=== PATIENT | male | born 1955 | race Caucasian/White ===

== ENCOUNTER 2019-07-07 06:47 | Inpatient (IN) | payer OTHER ==
[2019-07-07] VITALS (9 sets, daily range): BP systolic 90–126; BP diastolic 54–66
[~2019-07-07] VITALS: Ht 190.5 cm; Wt 157.4 kg
[2019-07-07 07:40] LABS: HEMATOCRIT 53.3 % (42.0-52.0); HEMOGLOBIN 15.8 g/dl (14.0-18.0); MEAN CORPUSCULAR HGB 27.9 pg (27.0-31.0); MEAN CORPUSCULAR HGB CONC 29.6 g/dl (33.0-37.0); MEAN PLATELET VOLUME 9.9 fl (9.6-12.3); NUCLEATED RED BLOOD CELL 0.6 10*3/uL (0.0-0.0); NUCLEATED RED BLOOD CELL 3.1 % (0.0-0.0); PLATELET COUNT AUTOMATED 321 10*3/uL (130-400); RED BLOOD COUNT 5.67 10*6/uL (4.50-5.90); RED CELL DISTRI WIDTH 15.3 % (0-14.5); WHITE BLOOD COUNT 17.6 10*3/uL (4.8-10.8)
[2019-07-07 07:49] LABS: ACT PARTIAL THROMBO TIME 26.4 SECONDS (20.0-32.1); INTERNATIONAL NORM RATIO 1.2 (2.0-3.5)
[2019-07-07 07:56] LABS: ALBUMIN 3.2 gm/dl (3.1-4.5); ALKALINE PHOSPHATASE 61 U/L (45-117); BUN 41 mg/dl (7-24); CHLORIDE 93 mmol/L (98-107); CREATININE 1.22 mg/dL (0.70-1.30); POTASSIUM 3.7 mmol/L (3.5-5.1); SGOT/AST 107 IU/L (3-35); SGPT/ALT 171 U/L (12-78); SODIUM 135 mmol/L (136-145); TOTAL PROTEIN 7.5 gm/dL (6.4-8.2)
[2019-07-07 07:57] LABS: TROPONIN I 0.042 ng/ml (<0.045)
[2019-07-07 08:00] LABS: ATYPICAL LYMPHS 1 % (0-0); TOTAL CELLS COUNTED 100 #CELLS
[2019-07-07 08:01] LABS: ABG BASE EXCESS 10.1 mmol/L (-2.0-2.0); ARTERIAL BLOOD GAS PH 7.267 (7.35-7.45)
[2019-07-07 08:01] LABS: PLATELET SUFFICIENCY NORMAL (NORMAL); POLYCHROMASIA SLIGHT; TARGET CELLS FEW
--- NOTE | 2019-07-07 08:11 | NUR ---
Critical Value reported from LAB PCO2 96. Dr. Lacey notifed. No new orders received.
--- NOTE | 2019-07-07 09:53 | NUR ---
PT PLACED ON VENTILATOR, GIVEN 20MG ETOMIDATE AT 0932 AND SUCCINYLCHOLINE 120MG AT 0933. ET TUBE 25 @ LIP. PT PLCED ON PROPOFOL. VENT SETTINGS 600TV, RATE 14, PEEP 5 AND 100% O2.
--- NOTE | 2019-07-07 10:27 | NUR ---
ART LINE INITIATED BY SOUND ENGINEER AUDIO CONTROL.
--- NOTE | 2019-07-07 11:17 | NUR ---
KETAMINE STARTED AT 30ML/HR.
--- NOTE | 2019-07-07 11:40 | NUR ---
KETAMINE DISCONTINUED.
[2019-07-07 12:51] LABS: ABG BASE EXCESS 8.8 mmol/L (-2.0-2.0); ARTERIAL BLOOD GAS PH 7.34 (7.35-7.45)
[2019-07-07 12:53] LABS: BILIRUBIN 2+ (NEGATIVE); BLOOD NEGATIVE (NEGATIVE); CLARITY SL CLOUDY (CLEAR); COLOR YELLOW (YELLOW); GLUCOSE NEGATIVE (NEGATIVE); KETONE NEGATIVE (NEGATIVE); LEUKO ESTERASE NEGATIVE (NEGATIVE); NITRITE NEGATIVE (NEGATIVE); SPECIFIC GRAVITY 1.025 (1.005-1.030); UROBILINOGEN >= 8.0 E.U./dl (0.2-1.0)
[2019-07-07 13:07] LABS: EPITHELIAL CELLS 0-2; HYALINE CAST 15-20
[2019-07-07 13:08] LABS: FINE GRANULAR CAST 15-20
[2019-07-07] MEDS ORDERED: DALIRESP500 MC1 PO (14:14)
[2019-07-07] MEDS ORDERED: NORVASC10 MG PO (14:15)
[2019-07-07] MEDS ORDERED: Synthroid,Levo50 MCG PO (14:16)
[2019-07-07] MEDS ORDERED: CARDURA2 M1 PO (14:17)
[2019-07-07] MEDS ORDERED: MULTIVITAMINS1 EAC6 PO (14:18)
[2019-07-07] MEDS ORDERED: LOPID600 M1 PO (14:19)
[2019-07-07] MEDS ORDERED: LASIX20 MG PO (14:19)
[2019-07-07] MEDS ORDERED: COZAAR50 M1 PO (14:20)
[2019-07-07] MEDS ORDERED: KLOR-CON 1010 ME1 PO (14:21)
[2019-07-07] MEDS ORDERED: Motrin,Rufen800 MG PO (14:23)
--- NOTE | 2019-07-07 14:23 | NUR ---
MED LIST UPDATED WITH PILL BOTTLES BROUGHT IN BY DAUGHTER - DR POZO AWARE. PILLS GIVEN BACK TO DAUGHTER TO TAKE HOME
--- NOTE | 2019-07-07 14:40 | NUR ---
Patient age 64, admitted to ICCU, under the services of EUN Mcnally DO with a diagnosis of ACUTE RESPIRATORY FAILURE. Chief complaint is SOB. Patient arrived via bed from ER. Monitor applied. Initial assessment completed. Vital signs taken and recorded. EUN MCNALLY DO notified of admission to the unit. Orders received. See assessment for past medical history, medications and allergies. Patient and/or family oriented to unit. [facility] ICCU visitation policy reviewed. Clothing/patient valuable form completed. NG tube placed, grady placed, specimens collected per orders. Patient is mechanically ventilated. Arterial line present. CALLIE RYAN
--- NOTE | 2019-07-07 14:44 | NUR ---
MESSAGE LEFT WITH [facility] CARDIOLOGY OFFICE TO MAKE THEM AWARE OF NEW CONSULT ORDER.
--- NOTE | 2019-07-07 14:44 | NUR ---
DR ZAMUDIO NOTIFIED OF NEW CONSULT ORDER.
[2019-07-07 16:31] LABS: ABG BASE EXCESS 8.2 mmol/L (-2.0-2.0); ARTERIAL BLOOD GAS PH 7.349 (7.35-7.45)
[2019-07-08] VITALS (14 sets, daily range): BP systolic 99–112; BP diastolic 51–60
[2019-07-08 06:10] LABS: BASO % 0.2 % (0.0-1.0); EOS % 0.3 % (1.0-4.0); HEMATOCRIT 50.8 % (42.0-52.0); HEMOGLOBIN 15.1 g/dl (14.0-18.0); LYMPH # 0.7 10*3/uL (1.3-4.4); LYMPH % 4.9 % (27.0-41.0); MEAN CORPUSCULAR HGB 27.4 pg (27.0-31.0); MEAN CORPUSCULAR HGB CONC 29.7 g/dl (33.0-37.0); MEAN PLATELET VOLUME 10.2 fl (9.6-12.3); MONO # 1.2 10*3/uL (0.1-1.0); MONO % 8.5 % (3.0-9.0); NEUT # 12.3 10*3/uL (2.3-7.9); NEUT % 84.6 % (47.0-73.0); NUCLEATED RED BLOOD CELL 0.2 10*3/uL (0.0-0.0); PLATELET COUNT AUTOMATED 285 10*3/uL (130-400); RED BLOOD COUNT 5.52 10*6/uL (4.50-5.90); WHITE BLOOD COUNT 14.5 10*3/uL (4.8-10.8)
[2019-07-08 06:11] LABS: ALBUMIN 2.8 gm/dl (3.1-4.5); BUN 37 mg/dl (7-24); CHLORIDE 94 mmol/L (98-107); CHOLESTEROL 113 mg/dL (<200); CREATININE 1.26 mg/dL (0.70-1.30); HDL CHOLESTEROL 16 mg/dl (40-60); LDL CHOLESTEROL 59 mg/dL (9-159); PHOSPHOROUS 4.3 mg/dL (2.5-4.9); POTASSIUM 3.8 mmol/L (3.5-5.1); SGOT/AST 60 IU/L (3-35); SGPT/ALT 127 U/L (12-78); SODIUM 138 mmol/L (136-145); TOTAL PROTEIN 6.9 gm/dL (6.4-8.2); TRIGLYCERIDES 190 mg/dl (<150); VLDL CHOLESTEROL 38 mg/dL (6-40)
[2019-07-08 06:17] LABS: ALKALINE PHOSPHATASE 52 U/L (45-117); FREE T4 0.99 ng/dl (0.76-1.46)
[2019-07-08 07:44] LABS: VITAMIN D, 25-HYDROXY 12.7 ng/mL (30-100)
[2019-07-08 07:49] LABS: ABG BASE EXCESS 9.2 mmol/L (-2.0-2.0); ARTERIAL BLOOD GAS PH 7.375 (7.35-7.45)
--- NOTE | 2019-07-08 09:00 | NUR ---
case management did not visit with patient, patient is on the vent at this time, discharge plan undecided at this time
[2019-07-09] VITALS (10 sets, daily range): BP systolic 95–158; BP diastolic 50–81
[2019-07-09 06:07] LABS: ALBUMIN 2.9 gm/dl (3.1-4.5); ALKALINE PHOSPHATASE 46 U/L (45-117); BUN 39 mg/dl (7-24); CHLORIDE 94 mmol/L (98-107); CREATININE 1.17 mg/dL (0.70-1.30); POTASSIUM 3.8 mmol/L (3.5-5.1); SGOT/AST 29 IU/L (3-35); SGPT/ALT 96 U/L (12-78); SODIUM 138 mmol/L (136-145); TOTAL PROTEIN 6.9 gm/dL (6.4-8.2)
[2019-07-09 06:34] LABS: BASO % 0.1 % (0.0-1.0); HEMATOCRIT 51.7 % (42.0-52.0); HEMOGLOBIN 15.6 g/dl (14.0-18.0); LYMPH # 0.4 10*3/uL (1.3-4.4); LYMPH % 3.7 % (27.0-41.0); MEAN CELL VOLUME 90.9 fl (80.0-94.0); MEAN CORPUSCULAR HGB 27.4 pg (27.0-31.0); MEAN CORPUSCULAR HGB CONC 30.2 g/dl (33.0-37.0); MEAN PLATELET VOLUME 10.7 fl (9.6-12.3); MONO # 0.9 10*3/uL (0.1-1.0); MONO % 8.6 % (3.0-9.0); NEUT % 86.7 % (47.0-73.0); NUCLEATED RED BLOOD CELL 0.1 10*3/uL (0.0-0.0); NUCLEATED RED BLOOD CELL 0.9 % (0.0-0.0); PLATELET COUNT AUTOMATED 253 10*3/uL (130-400); RED BLOOD COUNT 5.69 10*6/uL (4.50-5.90); WHITE BLOOD COUNT 10.4 10*3/uL (4.8-10.8)
--- NOTE | 2019-07-09 07:30 | NUR ---
INTUBATED AND SEDATED, SEDATION VACATION-PT AWAKENS FULLY AND MOTIONS TO WRITE NOTES, DIPROVAN RESUMED, OGT PLACEMENT CONFIRMED, ART LINE ZERO CALIBRATED PER POLICY, RASHEED FOPA VERY SMALL AMOUNT ELLIS URINE WITH SEDIMENT, RIJ CENTRAL LINE SECURE
[2019-07-09 07:58] LABS: ABG BASE EXCESS 12.1 mmol/L (-2.0-2.0); ARTERIAL BLOOD GAS PH 7.413 (7.35-7.45)
[2019-07-09 11:10] LABS: HEPATITIS B SURFACE AG Negative (Negative); HEPATITIS C VIRUS ANTIBODY 0.3 s/co (0.0-0.9)
--- NOTE | 2019-07-09 14:28 | NUR ---
pt fully awake, following directions, diprovan has been off, placed on cpap
[2019-07-09 17:00] LABS: ABG BASE EXCESS 13.8 mmol/L (-2.0-2.0); ARTERIAL BLOOD GAS PH 7.45 (7.35-7.45)
--- NOTE | 2019-07-09 17:46 | NUR ---
RASHEED CHANGED, DUE TO LEAKING AND SMALL URINE OUTPUT IN RASHEED FROM 7-3, IMMEDIATELY RETURN OF 1000 CC FOREIGN URINE
--- NOTE | 2019-07-09 17:50 | NUR ---
restraints removed at pts request
--- NOTE | 2019-07-09 20:22 | NUR ---
PATIENT SLIGHTLY AGITATED WITH ENDO TUBE, ATIVAN GIVEN TO HELP. WILL MONTIOR AND REASSESS.
--- NOTE | 2019-07-09 21:00 | NUR ---
PATIENT MORE RELAXED WITH THE ATIVAN, REQUESTED THE USE OF MOUTH SWABS. WAS GIVEN. ATIVAN EFFECTIVE. WILL CONTINUE TO MONITOR.
--- NOTE | 2019-07-09 23:14 | NUR ---
RESP IN TO SUCTION PATIENT, WHILE COUGHING OG CAME OUT. NOT REPLACED AT THIS TIME. DR. SHANE NOTIFIED.
[2019-07-10] VITALS: BP 109/58
[2019-07-10 04:00] VITALS: BP 115/54
[2019-07-10 05:32] LABS: ALBUMIN 2.9 gm/dl (3.1-4.5); BUN 37 mg/dl (7-24); CHLORIDE 95 mmol/L (98-107); POTASSIUM 3.7 mmol/L (3.5-5.1); SODIUM 141 mmol/L (136-145)
[2019-07-10 05:36] LABS: ALKALINE PHOSPHATASE 45 U/L (45-117); CREATININE 1.13 mg/dL (0.70-1.30); SGOT/AST 23 IU/L (3-35); SGPT/ALT 71 U/L (12-78); TOTAL PROTEIN 6.9 gm/dL (6.4-8.2)
[2019-07-10 06:14] LABS: HEMATOCRIT 52.6 % (42.0-52.0); HEMOGLOBIN 15.8 g/dl (14.0-18.0); MEAN CELL VOLUME 91.3 fl (80.0-94.0); MEAN CORPUSCULAR HGB 27.4 pg (27.0-31.0); MEAN PLATELET VOLUME 10.7 fl (9.6-12.3); NUCLEATED RED BLOOD CELL 0.1 10*3/uL (0.0-0.0); NUCLEATED RED BLOOD CELL 0.3 % (0.0-0.0); PLATELET COUNT AUTOMATED 227 10*3/uL (130-400); RED BLOOD COUNT 5.76 10*6/uL (4.50-5.90); RED CELL DISTRI WIDTH 14.9 % (0-14.5); WHITE BLOOD COUNT 16.1 10*3/uL (4.8-10.8)
[2019-07-10 07:36] LABS: POLYCHROMASIA SLIGHT; TOTAL CELLS COUNTED 100 #CELLS
[2019-07-10 07:37] LABS: PLATELET SUFFICIENCY NORMAL (NORMAL)
[2019-07-10 07:40] LABS: ABG BASE EXCESS 16.7 mmol/L (-2.0-2.0); ARTERIAL BLOOD GAS PH 7.466 (7.35-7.45)
[2019-07-10 08:00] VITALS: BP 109/60
--- NOTE | 2019-07-10 08:15 | NUR ---
RESTING NICELY ON VENTILATOR - RESTRAINTS NOT IN USE..AWAITING DR ZAMUDIO TO REVIEW ABG RESULTS..HE WAS CALLED BUT SAID HE WAS ON HIS WAY.
--- NOTE | 2019-07-10 09:00 | NUR ---
case mangement/master planner will contact patient's family regading discharge plans
--- NOTE | 2019-07-10 10:40 | NUR ---
patient extubated to bipap 16/10 50% o2 hung well.
[2019-07-10 12:00] VITALS: BP 133/71
--- NOTE | 2019-07-10 14:27 | NUR ---
PATIENT EATING ON NC5L... SATS 92%
[2019-07-10 16:00] VITALS: BP 121/57
--- NOTE | 2019-07-10 18:45 | NUR ---
2 UNSUCCESSFUL ATTEMPTS AT STARTING A SECOND IV SITE. PT TOLERATED WELL.
[2019-07-10 20:00] VITALS: BP 132/65
--- NOTE | 2019-07-10 20:00 | NUR ---
PATIENT SITTING UP IN BED, FEELING BETTER. STATES HE WANT TO GET OUT OF BED, BUT NOT UNTIL THE MORNING. PITTING EDEMA TO LOWER EXTS. PAIN TO RT LEG. BREATHING IS NON-LABORED, DENIES COUGH. PATIENT LEFT WITH CALL LIGHT IN REACH.
--- NOTE | 2019-07-10 20:18 | NUR ---
24 HR chart check completed.
--- NOTE | 2019-07-10 23:31 | NUR ---
PATIENT REQUESTED SOMETHING TO HELP HIM SLEEP. RESTORIL WAS GIVEN. WILL MONITOR AND REASSESS.
[2019-07-11] VITALS: BP 123/60
--- NOTE | 2019-07-11 00:30 | NUR ---
PATIENT RESTING ON BIPAP, NO SIGNS OF DISTRESS. RESTORIL EFFECTIVE.
[2019-07-11 04:00] VITALS: BP 125/64
--- NOTE | 2019-07-11 05:18 | NUR ---
PATIENT REQUESTED TO BE OFF BIPAP, TOLERATED WELL THROUGHTOUT THE NIGHT, PLACED ON 5L NC. POX 94%
[2019-07-11 05:27] LABS: HEMATOCRIT 51.5 % (42.0-52.0); HEMOGLOBIN 15.5 g/dl (14.0-18.0); MEAN CELL VOLUME 90.5 fl (80.0-94.0); MEAN CORPUSCULAR HGB 27.2 pg (27.0-31.0); MEAN CORPUSCULAR HGB CONC 30.1 g/dl (33.0-37.0); MEAN PLATELET VOLUME 10.6 fl (9.6-12.3); PLATELET COUNT AUTOMATED 206 10*3/uL (130-400); RED BLOOD COUNT 5.69 10*6/uL (4.50-5.90); RED CELL DISTRI WIDTH 14.6 % (0-14.5)
[2019-07-11 05:46] LABS: ALBUMIN 3.1 gm/dl (3.1-4.5); ALKALINE PHOSPHATASE 43 U/L (45-117); BUN 29 mg/dl (7-24); CHLORIDE 91 mmol/L (98-107); CREATININE 1.07 mg/dL (0.70-1.30); PHOSPHOROUS 3.4 mg/dL (2.5-4.9); POTASSIUM 3.7 mmol/L (3.5-5.1); SGOT/AST 22 IU/L (3-35); SGPT/ALT 56 U/L (12-78); SODIUM 136 mmol/L (136-145); TOTAL PROTEIN 6.9 gm/dL (6.4-8.2)
[2019-07-11 07:07] LABS: PLATELET SUFFICIENCY NORMAL (NORMAL); STOMATOCYTE FEW; TARGET CELLS FEW; TOTAL CELLS COUNTED 100 #CELLS
[2019-07-11 07:10] LABS: POLYCHROMASIA SLIGHT
[2019-07-11 08:00] VITALS: BP 118/63
--- NOTE | 2019-07-11 08:00 | NUR ---
PT RESTING QUIETLY AND COOPERATIVE AT THIS TIME. EASY RESPIRATIONS. RASHEED CATHETER IN PLACE DRAINING CLEAN YELLOW URINE. ART LINE IN PLACE PATENT. IV LINES PATENT WITH NO SIGNS OF ANY COMPLICATIONS. PT REPORTS SOME TENDERNESS TO RIGHT FALLON AND CALF. EDEMA NOTED BILATERALLY.
--- NOTE | 2019-07-11 08:21 | NUR ---
24 HR chart check completed.
--- NOTE | 2019-07-11 08:40 | NUR ---
PT UP TO CHAIR TO EAT BREAKFAST WITH ONE ASSIST RN AND WALKER. TOLERATED WELL
--- NOTE | 2019-07-11 09:10 | NUR ---
PT TRANSPORTED TO XRAY VIA WHEELCHAIR. RN WENT WITH PATIENT TO RADIOLOGY. OXYGEN SUPPLEMENTATION INCREASED TO 6L NC OXYGEN SATURATIONS REMAIN LOW 90S
--- NOTE | 2019-07-11 09:29 | NUR ---
PT BACK TO ROOM. IN BEDSIDE CHAIR EATING BREAKFAST. NO RESPIRATORY DISTRESS AT THIS TIME. PT REPORTS SOME ONGIONG PAIN TO THE RIGHT CALF AREA. MD GLOVER
--- NOTE | 2019-07-11 11:20 | NUR ---
RASHEED CATHETER DISCONTINUED PER MD ORDERS. PT TOLERATED WELL. NO BLEEDING OR DIFFICULTY REMOVING. CATHETER TIP INTACT.
--- NOTE | 2019-07-11 11:30 | NUR ---
ART LINE REMOVED FROM LEFT ANTECUBITAL. CATHETER TIP REMOVED INTACT WITH ACUTE BLEEDING CONTROLLED. MANUAL PRESSURE APPLIED TO CONTROL BLEEDING UPON REMOVAL PRESSURE DRESSING APPLIED TO LEFT ANTECUBITAL. PT TOLERATED WELL.
[2019-07-11 12:00] VITALS: BP 131/62
--- NOTE | 2019-07-11 13:45 | NUR ---
PT REMAINS IN BEDSIDE CHAIR. RESTING QUIETLY. NO RESPIRATORY DISTRESS.
[2019-07-11 16:00] VITALS: BP 121/66
--- NOTE | 2019-07-11 17:25 | NUR ---
PATIENT REFUSES KRYSTA - "TOO TIGHT" REF SCD (FALL RISK HE GETS UP TO VOID) PT ALSO C/O TENDERNESS TO RT FALLON (UNABLE TO DO ULTRASOUND UNTIL SATURDAY) LOVENOX TAKEN..
--- NOTE | 2019-07-11 19:30 | NUR ---
DR MEZA HERE AND MADE AWARE OF CHANGES IN EKG - DENIES CHEST PAIN BUT PATIENT IS SOB WITH EXERTION AND FEELS FEVERED. PATIENT IS CLAMMY. STAT LABS & EKG WERE ORDERED. DR PINTO CALLED AND CASE REVIEWED --- EKG REVIEWED AND ORDERS FOR HEPARIN DRIP RECEIVED...DR MEZA HERE
[2019-07-11 20:00] VITALS: BP 133/73
[2019-07-11 20:04] LABS: ACT PARTIAL THROMBO TIME 26.6 SECONDS (20.0-32.1); INTERNATIONAL NORM RATIO 1.1 (2.0-3.5)
--- NOTE | 2019-07-11 20:30 | NUR ---
HEPARIN GTT INITIATED AT 12 UNITS PER PROTOCOL. INITIAL PTT 26.6. CALL LIGHT WITHIN REACH.
[2019-07-12] VITALS (7 sets, daily range): BP systolic 105–130; BP diastolic 58–80
--- NOTE | 2019-07-12 03:00 | NUR ---
HEPARIN GTT INCREASED TO 14 UNIT PER PROTOCOL.
--- NOTE | 2019-07-12 08:30 | NUR ---
UP IN CHAIR AFTER BATH DONE MOSTLY BY STAFF
--- NOTE | 2019-07-12 09:24 | NUR ---
DR GUTIERRES ROUNDED - PATIENT SEEN & ORDERS RECEIVED.
[2019-07-12 09:28] LABS: BASO % 0.2 % (0.0-1.0); EOS % 0.2 % (1.0-4.0); HEMATOCRIT 50.9 % (42.0-52.0); HEMOGLOBIN 15.8 g/dl (14.0-18.0); LYMPH # 0.5 10*3/uL (1.3-4.4); LYMPH % 3.6 % (27.0-41.0); MEAN CELL VOLUME 89.8 fl (80.0-94.0); MEAN CORPUSCULAR HGB 27.9 pg (27.0-31.0); MEAN PLATELET VOLUME 10.7 fl (9.6-12.3); MONO # 1.1 10*3/uL (0.1-1.0); MONO % 8.6 % (3.0-9.0); NEUT # 10.9 10*3/uL (2.3-7.9); NEUT % 87.1 % (47.0-73.0); PLATELET COUNT AUTOMATED 191 10*3/uL (130-400); RED BLOOD COUNT 5.67 10*6/uL (4.50-5.90); RED CELL DISTRI WIDTH 14.4 % (0-14.5); WHITE BLOOD COUNT 12.5 10*3/uL (4.8-10.8)
[2019-07-12 09:42] LABS: ALBUMIN 3.2 gm/dl (3.1-4.5); ALKALINE PHOSPHATASE 42 U/L (45-117); BUN 25 mg/dl (7-24); CHLORIDE 90 mmol/L (98-107); CREATININE 1.24 mg/dL (0.70-1.30); POTASSIUM 3.9 mmol/L (3.5-5.1); SGOT/AST 21 IU/L (3-35); SGPT/ALT 53 U/L (12-78); SODIUM 132 mmol/L (136-145); TOTAL PROTEIN 7.1 gm/dL (6.4-8.2)
--- NOTE | 2019-07-12 10:40 | NUR ---
HEPARIN DRIP INCREASED PER POLICY
--- NOTE | 2019-07-12 11:35 | NUR ---
GLUCOSE 516 IN LEFT HAND - RECHECKED IN RT HAND & RESULT 496.. COVERED WITH INSULIN PER SLIDING SCALE... PATIENT SITTING UP IN CHAIR WITH FAMILY PRESENT
--- NOTE | 2019-07-12 12:45 | NUR ---
DR ZAMUDIO HERE AND CASE REVIEWED..ORDERS RECEIVED
--- NOTE | 2019-07-12 20:56 | NUR ---
PATIENT REQUESTED A SLEEPING PILL. RESTORIL GIVEN. WILL MONITOR AND REASSESS.
--- NOTE | 2019-07-12 23:20 | NUR ---
PLACED PATIENT ON BIPAP FOR THE NIGHT
[2019-07-13] VITALS: BP 107/66
--- NOTE | 2019-07-13 00:24 | NUR ---
PATIENT RESTING ON BIPAP, NO SIGNS OF DISTRESS. RESTORIL EFFECTIVE.
--- NOTE | 2019-07-13 02:02 | NUR ---
PATIENT REQUESTED TO BE TAKEN OFF BIPAP. PLACED ON 5L NC.
[2019-07-13 04:00] VITALS: BP 100/63
--- NOTE | 2019-07-13 04:19 | NUR ---
24 HR chart check completed.
[2019-07-13 05:29] LABS: HEMATOCRIT 51.1 % (42.0-52.0); HEMOGLOBIN 15.5 g/dl (14.0-18.0); MEAN CELL VOLUME 89.6 fl (80.0-94.0); MEAN CORPUSCULAR HGB 27.2 pg (27.0-31.0); MEAN CORPUSCULAR HGB CONC 30.3 g/dl (33.0-37.0); MEAN PLATELET VOLUME 11.4 fl (9.6-12.3); PLATELET COUNT AUTOMATED 192 10*3/uL (130-400); RED CELL DISTRI WIDTH 14.3 % (0-14.5); WHITE BLOOD COUNT 12.8 10*3/uL (4.8-10.8)
[2019-07-13 05:49] LABS: BUN 23 mg/dl (7-24); CHLORIDE 92 mmol/L (98-107); CREATININE 0.87 mg/dL (0.70-1.30); POTASSIUM 3.1 mmol/L (3.5-5.1); SODIUM 137 mmol/L (136-145)
[2019-07-13 06:24] LABS: BASOPHILS 1 % (0-1); TOTAL CELLS COUNTED 100 #CELLS
[2019-07-13 06:25] LABS: PLATELET SUFFICIENCY NORMAL (NORMAL)
[2019-07-13 08:00] VITALS: BP 109/64
--- NOTE | 2019-07-13 10:03 | NUR ---
INFORMED SIGNED CONSENT OBTAINED FOR LEXISCAN STRESS TEST WITH DR MAS. RESTING EKG RBBB HR 83 BP 122/64. PULSE OX 92% ON 4L. PT COMPLETED ONE MINUTE OF A LEXISCAN PROTOCOL WITH PT RECEIVING LEXISCAN 0.4MG IV OVER 10 SECONDS. NO ARRHYTHMIAS OR ST CHANGES NOTED. PT HAD NO SYMPTOMS WITH INJECTION. LAST RECOVERY HR OF 85 BP 114/68. PT IN STABLE CONDITION, AWAITING NUCLEAR IMAGES.
[2019-07-13 12:00] VITALS: BP 115/60
[2019-07-13 16:00] VITALS: BP 98/65
--- NOTE | 2019-07-13 16:10 | NUR ---
PATIENT TESTED FOR HOME OXYGEN USE. PATIENT HAS PREVIOUSLY HAD OXYGEN AT HOME AT 3LNC WITH PORTABLE OPTIONS. AT REST ON 3LNC HE WAS SITTING AT 88% SPO2, HEART RATE:77,RESPIRATORY RATE:18 BLOOD PRESSURE:115/60. DURING THE AMBULATION THE 3 LITERS WAS NOT ENOUGH. PATIENT TURNED TO 4L WITH SPO2 STILL AT 88%. 5LNC WAS ABLE TO GIVE US 90% WHILE STANDING STILL, BUT PATIENT HAD TO BE INCREASED TO 6LNC DURING AMBULATION. PATIENT RECOVERED QUICKLY ON 6LNC WHEN RETURNED TO CHAIR IN ROOM. DURING AMBULATION PATIENT WAS ABLE TO MAINTAIN 90/91% SPO2 ON THE 6 L NASAL CANNULA.
--- NOTE | 2019-07-13 18:10 | NUR ---
REMAINS UP IN RECLINER
[2019-07-13 20:00] VITALS: BP 107/59
--- NOTE | 2019-07-13 20:08 | NUR ---
1930 REMAINS SITTING UP IN RECLINER CHAIR AT BEDSIDE. ALERT AND PLEASANT. NO C/O'S PAIN OR DISCOMFORT VOICED. RIJ MLC INTACT. HEP LOCK INTACT LA. URINAL AT BEDSIDE. VOIDS QS. 02 INTACT VIA NC. NO DISTRESS NOTED. EDEMA CONT OF BILATERAL LOWER EXTREMITIES.
--- NOTE | 2019-07-13 22:15 | NUR ---
BACK IN BED. CALL LIGHT IN REACH. RESTING IN BED WATCHING TV.
[2019-07-14] VITALS: BP 125/75
--- NOTE | 2019-07-14 00:13 | NUR ---
REMAINS WITHOUT C/O'S. PULSE OX 96% ON 5L. RESPIRATIONS EASY AND UNLABORED.
--- NOTE | 2019-07-14 03:21 | NUR ---
RESTING IN BED WITH EYES CLOSED. APPEARS TO BE SLEEPING.
[2019-07-14 04:00] VITALS: BP 117/72
--- NOTE | 2019-07-14 06:08 | NUR ---
REMAINS SLEEPING WITHOUT DISTRESS. HOB ELEVATED. 02 INTACT. RIJ MLC INTACT. CONDITION GUARDED.
[2019-07-14 06:24] LABS: HEMATOCRIT 51.8 % (42.0-52.0); HEMOGLOBIN 15.9 g/dl (14.0-18.0); MEAN CELL VOLUME 89.6 fl (80.0-94.0); MEAN CORPUSCULAR HGB 27.5 pg (27.0-31.0); MEAN CORPUSCULAR HGB CONC 30.7 g/dl (33.0-37.0); MEAN PLATELET VOLUME 11.5 fl (9.6-12.3); PLATELET COUNT AUTOMATED 205 10*3/uL (130-400); RED BLOOD COUNT 5.78 10*6/uL (4.50-5.90); RED CELL DISTRI WIDTH 14.6 % (0-14.5); WHITE BLOOD COUNT 15.9 10*3/uL (4.8-10.8)
[2019-07-14 06:41] LABS: BUN 20 mg/dl (7-24); CHLORIDE 93 mmol/L (98-107); CREATININE 0.86 mg/dL (0.70-1.30); POTASSIUM 3.7 mmol/L (3.5-5.1); SODIUM 135 mmol/L (136-145)
[2019-07-14 07:13] LABS: ATYPICAL LYMPHS 2 % (0-0); PLATELET SUFFICIENCY NORMAL (NORMAL); TOTAL CELLS COUNTED 100 #CELLS
[2019-07-14 08:00] VITALS: BP 106/65
--- NOTE | 2019-07-14 08:49 | NUR ---
case management visits with patient, he states he lives at home alone, he uses he is independent in ambulation with a cane, he is independent in adls. he has home oxygen and portable tanks, he thinks the suppling company is [employer]. discussed with him a discharge plan including a short term longterm for rehab, patient declined this, also discussed VNA and educated him on the services they provide, he was receptive to this, case management will send referral to home health for when patient is medically stable for discharge
[2019-07-14] MEDS ORDERED: LASIX40 MG PO (10:13)
[2019-07-14] MEDS ORDERED: LOPRESSOR25 MG PO (10:13)
[2019-07-14] MEDS ORDERED: ATORVASTATIN CA40 M1 PO (10:13)
[2019-07-14] MEDS ORDERED: ASPIRIN ADULT L81 M2 PO (10:13)
[2019-07-14] MEDS ORDERED: PREDNISONE10 MG PO (10:13)
--- NOTE | 2019-07-14 10:40 | NUR ---
Discharge instructions reviewed with patient/family. Patient receptive and verbalizes understanding. Follow-up care arranged. Written instructions given to patient/family. CLARK HERRERA
--- NOTE | 2019-07-14 10:41 | NUR ---
case management notifed Marta at [facility] that patient is being discharged to home today
--- NOTE | 2019-07-14 10:52 | NUR ---
PT DISCHARGED TO HOME WITH DAUGHTER.
== END 2019-07-14 11:24 | disposition home health service (06) | DRG 720 ==
LOC: ED 06:47 → ICCU 08:52 → EDHOLD 08:52 → ICCU 11:47
PROVIDERS: Emergency Medicine; Internal Medicine; Internal Medicine Critical Care Medicine; ADMIT Family Medicine
PROC: 5A09357 Assistance with Respiratory Ventilation, Less than 24 Consecutive Hours, Continuous Positive Airway Pressure (ICD-10-PCS; principal; 2019-07-07)
PROC: 02HV33Z Insertion of Infusion Device into Superior Vena Cava, Percutaneous Approach (ICD-10-PCS; 2019-07-07)
PROC: B548ZZA Ultrasonography of Superior Vena Cava, Guidance (ICD-10-PCS; 2019-07-07)
PROC: 0BH17EZ Insertion of Endotracheal Airway into Trachea, Via Natural or Artificial Opening (ICD-10-PCS; 2019-07-07)
PROC: 5A1945Z Respiratory Ventilation, 24-96 Consecutive Hours (ICD-10-PCS; 2019-07-07)
PROC: 03HY32Z Insertion of Monitoring Device into Upper Artery, Percutaneous Approach (ICD-10-PCS; 2019-07-07)
PROC: 4A133B1 Monitoring of Arterial Pressure, Peripheral, Percutaneous Approach (ICD-10-PCS; 2019-07-07)
PROC: 4A133J1 Monitoring of Arterial Pulse, Peripheral, Percutaneous Approach (ICD-10-PCS; 2019-07-07)
PROC: 5A09357 Assistance with Respiratory Ventilation, Less than 24 Consecutive Hours, Continuous Positive Airway Pressure (ICD-10-PCS; 2019-07-09)
PROC: 5A09357 Assistance with Respiratory Ventilation, Less than 24 Consecutive Hours, Continuous Positive Airway Pressure (ICD-10-PCS; 2019-07-10)
PROC: 5A09357 Assistance with Respiratory Ventilation, Less than 24 Consecutive Hours, Continuous Positive Airway Pressure (ICD-10-PCS; 2019-07-11)
PROC: 5A09357 Assistance with Respiratory Ventilation, Less than 24 Consecutive Hours, Continuous Positive Airway Pressure (ICD-10-PCS; 2019-07-12)
PROC: 4A02XM4 Measurement of Cardiac Total Activity, External Approach (ICD-10-PCS; 2019-07-13)
PROC: 3E073KZ Introduction of Other Diagnostic Substance into Coronary Artery, Percutaneous Approach (ICD-10-PCS; 2019-07-13)
DX: A41.9 Sepsis, unspecified organism (principal); J96.21 Acute and chronic respiratory failure with hypoxia; I21.4 Non-ST elevation (NSTEMI) myocardial infarction; J96.02 Acute respiratory failure with hypercapnia; J18.9 Pneumonia, unspecified organism; I50.33 Acute on chronic diastolic (congestive) heart failure; J44.1 Chronic obstructive pulmonary disease with (acute) exacerbation; E87.4 Mixed disorder of acid-base balance; E87.1 Hypo-osmolality and hyponatremia; E83.41 Hypermagnesemia; I11.0 Hypertensive heart disease with heart failure; Z99.81 Dependence on supplemental oxygen; R65.20 Severe sepsis without septic shock; E78.5 Hyperlipidemia, unspecified; E66.01 Morbid (severe) obesity due to excess calories; E11.65 Type 2 diabetes mellitus with hyperglycemia; E03.9 Hypothyroidism, unspecified; F12.90 Cannabis use, unspecified, uncomplicated; I45.10 Unspecified right bundle-branch block; E87.6 Hypokalemia; I77.819 Aortic ectasia, unspecified site; T38.0X5A Adverse effect of glucocorticoids and synthetic analogues, initial encounter; Z86.73 Personal history of transient ischemic attack (TIA), and cerebral infarction without residual deficits; Z68.41 Body mass index [BMI] 40.0-44.9, adult; Z87.891 Personal history of nicotine dependence; Z83.3 Family history of diabetes mellitus; Z91.018 Allergy to other foods; Y92.89 Other specified places as the place of occurrence of the external cause

== ENCOUNTER 2020-04-26 15:29 | Inpatient (IN) | payer OTHER ==
[~2020-04-26] VITALS: Ht 198.1 cm; Wt 150.4 kg
[~2020-04-26 15:29] MED LIST: ASPIRIN ADULT L81 M2 PO; ATORVASTATIN CA40 M1 PO; CARDURA2 M1 PO; COZAAR50 M1 PO; DALIRESP500 MC1 PO; KLOR-CON 1010 ME1 PO; LASIX20 MG PO; LASIX40 MG PO; LOPID600 M1 PO; LOPRESSOR25 MG PO; MULTIVITAMINS1 EAC6 PO; Motrin,Rufen800 MG PO; NORVASC10 MG PO; PREDNISONE10 MG PO; Synthroid,Levo50 MCG PO
[2020-04-26 15:32] VITALS: BP 105/60
[2020-04-26 16:26] LABS: HEMATOCRIT 53.6 % (42.0-52.0); MEAN CELL VOLUME 88.6 fl (80.0-94.0); MEAN CORPUSCULAR HGB 26.1 pg (27.0-31.0); MEAN CORPUSCULAR HGB CONC 29.5 g/dl (33.0-37.0); MEAN PLATELET VOLUME 9.9 fl (9.6-12.3); NUCLEATED RED BLOOD CELL 0.2 10*3/uL (0.0-0.0); NUCLEATED RED BLOOD CELL 1.3 % (0.0-0.0); PLATELET COUNT AUTOMATED 246 10*3/uL (130-400); RED BLOOD COUNT 6.05 10*6/uL (4.50-5.90); RED CELL DISTRI WIDTH 15.9 % (0-14.5)
[2020-04-26 16:38] LABS: INTERNATIONAL NORM RATIO 1.2 (2.0-3.5)
[2020-04-26 16:43] LABS: BASOPHILS 1 % (0-1); PLATELET SUFFICIENCY NORMAL (NORMAL); TOTAL CELLS COUNTED 100 #CELLS
[2020-04-26 17:01] LABS: ALBUMIN 3.1 gm/dl (3.1-4.5); ALKALINE PHOSPHATASE 67 U/L (45-117); BUN 32 mg/dl (7-24); CHLORIDE 100 mmol/L (98-107); CREATININE 1.05 mg/dL (0.70-1.30); LIPASE 60 U/L (73-393); POTASSIUM 4.9 mmol/L (3.5-5.1); SGOT/AST 9 IU/L (3-35); SGPT/ALT 27 U/L (12-78); SODIUM 138 mmol/L (136-145); TOTAL PROTEIN 6.7 gm/dL (6.4-8.2)
[2020-04-26 17:10] LABS: TROPONIN I 0.064 ng/ml (<0.045)
--- NOTE | 2020-04-26 18:24 | NUR ---
THE IV THAT EMS PUT IN DID PULL OUT
[2020-04-26 19:00] VITALS: BP 106/64
--- NOTE | 2020-04-26 19:00 | NUR ---
A 64, admitted to 5E, under the services of YVROSE Salas DO with a diagnosis of NEW ONSET A FLUTTER, ELEVATED TROPONINS. Chief complaint is WEAKNESS, SOB. Patient arrived via ambulance from ER. Monitor applied. Initial assessment completed. Vital signs taken and recorded. YVROSE SALAS DO notified of admission to the unit. Orders received. See assessment for past medical history, medications and allergies. Patient and/or family oriented to unit. [facility] visitation policy reviewed. Clothing/patient valuable form completed. BRANDON NASCIMENTO
--- NOTE | 2020-04-26 19:07 | NUR ---
THE PATIENT'S BUTTOCK IS RED BUT BLANCHABLE. DRY, FLAKING SKIN NOTED TO BILATERAL FEET.
--- NOTE | 2020-04-26 19:51 | NUR ---
CALLED DR. TOLBERT AND NOTIFIED HIM OF PULSE OX AND SENDING ABG'S AND ALSO CRITICAL TROPONIN 0.079. NOTIFY CARDIOLOGY.
[2020-04-26 20:03] LABS: ABG BASE EXCESS 7.6 mmol/L (-2.0-2.0); ARTERIAL BLOOD GAS PH 7.296 (7.35-7.45)
[2020-04-26 20:10] VITALS: BP 117/74
[2020-04-26 20:15] VITALS: BP 103/62
--- NOTE | 2020-04-26 20:25 | NUR ---
Pt placed on BiPap 16/8 and FiO2 65%. Alarms on and auidble. SpO2 94% ABG's at 2145 per .
--- NOTE | 2020-04-26 20:40 | NUR ---
CONSULT CALLED TO . AWAITING CALL BACK.
--- NOTE | 2020-04-26 20:44 | NUR ---
AWARE OF CONSULT. ORDERS FOR ABG REC'D RT JASON NOTIFIED. WANTS CALLED WITH RESULTS. CALLED BACK. ORDERS FOR 0.5 OF DIGOXIN NOW AND MAKE NPO FOR POSSIBLE TESTING IN AM.
--- NOTE | 2020-04-26 20:54 | NUR ---
WALKED INTO PTs ROOM WITH BIPAP ALARMING AND OFF OF FACE, HEART MONITOR PULLED OFF. PT STATES HE MESSED HIS BED AND NEEDS HELP. BIPAP PLACED BACK ON, HEART MONITOR PLACED ON. AID AT BED TO CHANGE LINENS.
[2020-04-26 21:00] VITALS: BP 144/77
--- NOTE | 2020-04-26 21:31 | NUR ---
HR 88 AFIB ON CM, 10MIC CARDIZEM INFUSING. TOLERATING AND RESPONDING WELL.
--- NOTE | 2020-04-26 21:48 | NUR ---
CARDIZEM DRIP TURNED DOWN TO 7MIC AT THSI TIME. HR SUSTAINING 70s ON CM WHILE AT 10MIC.
--- NOTE | 2020-04-26 22:00 | NUR ---
CARDIZEM DRIP DECREASED TO 5 MG/HR HEART RATE IN 60'S WILL CONTINUE TO MONITOR.
[2020-04-26 22:04] VITALS: BP 114/60
[2020-04-26] MEDS ORDERED: PROVENTIL HFA6.7 GM INH (22:17)
[2020-04-26] MEDS ORDERED: AIRDUO DIGIHAL1 EACH INH (22:20)
[2020-04-26 22:22] LABS: ARTERIAL BLOOD GAS PH 7.225 (7.35-7.45)
--- NOTE | 2020-04-26 22:23 | NUR ---
MED REC UPDATED, NOTIFIED.
--- NOTE | 2020-04-26 22:30 | NUR ---
BiPap settings changed per to 24/10 and FiO2 65%. ABG's in the AM. Alarms on and audible. SpO2 96%
--- NOTE | 2020-04-26 22:48 | NUR ---
CALLED DR. TOLBERT AND NOTIFIED HIM OF CRITICAL TROPONIN 0.057 ALSO NOTIFIED HIM OF PT. ON CONTINUOUS CARDIZEM DRIP AND IS HE WANTED PO BP HEART MEDS HELD. ORDER TO HOLD PO MEDS TONIGHT AND TITRATE CARDIZEM NEEDED PER HEART RATE.
--- NOTE | 2020-04-26 22:52 | NUR ---
CARDIZEM DRIP DECREASED TO 2.5MG/HR PER DR. TOLBERT FOR HEART RATED 66-69 BPM. WILL CONTINUE TO MONITOR.
--- NOTE | 2020-04-26 23:10 | NUR ---
DAUGHTER YULISA CALLED IN AND UPDATED. PER DAUGHTER PATIENT DOES NOT HAVE ENOUGH OXYGEN TUBING TO REACH HIS BEDROOM SO HE DOES NOT SLEEP WITH IT ON. ALSO HE HAS NOT BEEN EATING WELL, AND URINE IS DARK PER DAUGHTER. PER DAUGHTER PATIENT WANTS HOME HEALTH AGENCY TO COME SEE HIM AGAIN.
[2020-04-27] VITALS (38 sets, daily range): BP systolic 77–154; BP diastolic 50–94
--- NOTE | 2020-04-27 00:05 | NUR ---
24 HR chart check completed.
--- NOTE | 2020-04-27 02:00 | NUR ---
PATIENT AWAKE PULLED BIPAP OFF TRIED PLACING IT BACK ON AND PATIENT PULLED IT OFF AGAIN PUT O2 NC ON AT 10L. PULSE OX CONTINUED TO GO DOWN PULSE OX 70'S PATIENT REFUSING TO PUT BIPAP BACK ON. PATIENT URINATED 125CC DARK FOREIGN URINE, TOOK COUPLE SIPS OF WATER AND WAS COLD BLANKETS PLACED. PATIENT KEPT REFUSING BIPAP AND PATIENT WENT BACK TO SLEEP. CALLED [facility].
--- NOTE | 2020-04-27 02:17 | NUR ---
PATIENT PULSE OX NOT COMING UP WITH NC TALKED PATIENT BACK INTO PUTTING BIPAP BACK ON. BIPAP ON PULSE OX UP TO 91% AFTER COUPLE MINUTES.
--- NOTE | 2020-04-27 02:55 | NUR ---
INCREASED CARDIZEM DRIP BACK UP TO 5MG/HR HR FLUCTUATING FROM MID 90'S TO 115. WILL CONTINUED TO MONITOR.
[2020-04-27 03:24] LABS: BILIRUBIN 1+ (Negative); BLOOD Negative (Negative); CLARITY Clear (Clear); COLOR Dark Yellow (Yellow); GLUCOSE Negative (Negative); KETONE Negative (Negative); LEUKO ESTERASE Trace (Negative); NITRITE Negative (Negative); PH 5.5 (4.5-8.0)
[2020-04-27 03:36] LABS: HYALINE CAST 21-30
--- NOTE | 2020-04-27 04:00 | NUR ---
0340 PATIENT AWAKE PULED BIPAP OFF WANTING TO LEAVE TRYING TO TALK PATIENT CALMLY INTO PUTTING BIPAP BACK ON. PATIENT REFUSING REORIENTING PATIENT TO PLACE AND WHAT HAPPEND WHY HE IS HERE. PATIENT WANTING TO TALK WITH DAUGHTER. [address] TOLBERT AND HE IS COMING TO FLOOR BECAUSE PATIENT WANTED TO TALK WITH DOCTOR. 0350 DOCTOR CAME TO FLOOR TALKING WITH PATIENT. INCREASED CARDIZEM TO 10MG/HR FOR HR IN 120'S PATIENT IN RUNS OF PVC'S PATIENT ASYMPTOMATIC NO C/O CP. CALLED DAUGHTER AND NOTIFIED HER OF WHAT WAS GOING ON AND SWITCHED HER INTO PATIENT ROOM AND HE TALKING WITH HERE AT 0355.
--- NOTE | 2020-04-27 04:01 | NUR ---
CALLED [facility]. TO PLACE PATIENT ON HIGHFLOW BECAUSE PATIENT REFUSING TO GO BACK ON BIPAP. HE IS COMING UP TO UNIT.
--- NOTE | 2020-04-27 04:09 | NUR ---
CALLED DR. MCCAIN PERTAINING TO PT. REFUSING BLOOD WORK.
--- NOTE | 2020-04-27 04:12 | NUR ---
PRN ATIVAN GIVEN ORDERED FOR INCREASED ANXIETY AND AGITATION. BED IS LOW, LOCKED, ALARMED, AND CALL LIGHT IS WITHIN REACH. WILL CONTINUE TO MONITOR, SEE INTERVENTIONS.
--- NOTE | 2020-04-27 04:19 | NUR ---
HEART RATED HIGH 90'S TO LOW 100'S CARDIZEM DRIP IS AT 10MG/HR. PATIENT WAS TALKED BACK INTO PLACING BIPAP BACK ON BY [facility]. THERAPIST. WILL CONT TO MONITOR.
--- NOTE | 2020-04-27 04:44 | NUR ---
PATIENT SLEEPING AT PRESENT TIME. ATIVAN EFFECTIVE AT THIS TIME. BIPAP REMAIN IN USE.
--- NOTE | 2020-04-27 06:00 | NUR ---
PATIENT AWAKEND BRIEFLY FOR BP CHECK. PATIENT WENT BACK TO SLEEP. BIPAP STILL IN USE.
--- NOTE | 2020-04-27 06:30 | NUR ---
NOT AWAKENING PATIENT TO TAKE BIPAP OFF AT THIS TIME UNTIL AFTER ABG RESULTS COME BACK.
--- NOTE | 2020-04-27 07:10 | NUR ---
PATIENT REFUSING BLOOD DRAW AGAIN DR. ARANA NOTIFIED OF THIS AND BLOOD GAS RESULT AND THAT DR. ZAMUDIO NOTIFIED.
[2020-04-27 07:27] LABS: ABG BASE EXCESS 5.1 mmol/L (-2.0-2.0); ARTERIAL BLOOD GAS PH 7.209 (7.35-7.45)
--- NOTE | 2020-04-27 07:33 | NUR ---
CRITICAL BLOOD GAS PCO2 99 NOTIFIED [facility] AND THEY ARE CALLING DR. ZAMUDIO.
--- NOTE | 2020-04-27 07:40 | NUR ---
[facility] CALLED DR. ZAMUDIO AND HE WILL SEE PATIENT THIS MORNING.
--- NOTE | 2020-04-27 07:45 | NUR ---
CALLED DR. ARANA AND NOTIFIED HIM OF PATIENT PCO2 THAT DR. ZAMUDIO WAS CALLED AND HE WILL SEE PATIENT THIS AM. ALSO NOTIFIED DR. ARANA OF HR STILL IN AND OUT OF AFLUTTER, RBBB, POSSIBLE PVC'S. PATIENT WAS ASYMPTOMATIC
--- NOTE | 2020-04-27 07:58 | NUR ---
PHYSICAL THERAPY Screen received pt admitted with SOB Pneumonitis,please consult PT if pt has a decline in functional status below baseline thank you Erin Nicholson PT
--- NOTE | 2020-04-27 08:00 | NUR ---
REPOSITIONED IN BED WITH 2 ASSIST. SPEECH GARBLED. LATHARGIC BUT RESPONDS TO VERBAL STIMULI. BLOOD OBTAINED VIA LAB. TOLERATED WELL. BIPAP ON AND FUNCTIONING PROPERLY. CALL LIGHT IN REACH.
[2020-04-27 08:38] LABS: BASO # 0.1 10*3/uL (0.0-0.1); BASO % 0.5 % (0.0-1.0); HEMATOCRIT 55.1 % (42.0-52.0); LYMPH % 7.6 % (27.0-41.0); MEAN CELL VOLUME 90.8 fl (80.0-94.0); MEAN CORPUSCULAR HGB 25.9 pg (27.0-31.0); MEAN CORPUSCULAR HGB CONC 28.5 g/dl (33.0-37.0); MEAN PLATELET VOLUME 10.2 fl (9.6-12.3); MONO # 0.6 10*3/uL (0.1-1.0); MONO % 5.1 % (3.0-9.0); NEUT # 10.8 10*3/uL (2.3-7.9); NEUT % 85.8 % (47.0-73.0); NUCLEATED RED BLOOD CELL 0.1 10*3/uL (0.0-0.0); NUCLEATED RED BLOOD CELL 0.9 % (0.0-0.0); PLATELET COUNT AUTOMATED 245 10*3/uL (130-400); RED BLOOD COUNT 6.07 10*6/uL (4.50-5.90); RED CELL DISTRI WIDTH 15.9 % (0-14.5); WHITE BLOOD COUNT 12.6 10*3/uL (4.8-10.8)
--- NOTE | 2020-04-27 09:00 | NUR ---
SEEN PATIENT. RECIEVED NEW ORDER. TO TRASFER TO ICU. NURSING REACH LIFT TRUCK DRIVER NOTIFIED. WAITING FOR BED.
[2020-04-27 09:04] LABS: INTERNATIONAL NORM RATIO 1.1 (2.0-3.5)
[2020-04-27 09:06] LABS: ALBUMIN 3.2 gm/dl (3.1-4.5); ALKALINE PHOSPHATASE 68 U/L (45-117); BUN 33 mg/dl (7-24); CHLORIDE 99 mmol/L (98-107); CHOLESTEROL 63 mg/dL (<200); CREATININE 1.33 mg/dL (0.70-1.30); HDL CHOLESTEROL 22 mg/dl (40-60); LDL CHOLESTEROL 24 mg/dL (9-159); POTASSIUM 4.9 mmol/L (3.5-5.1); SGOT/AST 4 IU/L (3-35); SGPT/ALT 23 U/L (12-78); SODIUM 137 mmol/L (136-145); TOTAL PROTEIN 7.1 gm/dL (6.4-8.2); TRIGLYCERIDES 87 mg/dl (<150); VLDL CHOLESTEROL 17 mg/dL (6-40)
--- NOTE | 2020-04-27 09:30 | NUR ---
TRANSFERED TO ICU BED 9. IN STABLE CONDITION. GAVE BEDSIDE REPORT TO ICU NURSE. TOOK ALL BELONGINGS WITH PT.
--- NOTE | 2020-04-27 09:50 | NUR ---
RECEIVED FROM 5E VIA BED FOR CLOSER MONITORING OF BIPAP USAGE 7 POSSIBLE INTUBATION. 1000 BIPAP 30/10 BU 14 65% O2. - 2 ATTEMPTS AT GETTING A 2ND IV UNSUCCESSFUL EACH BLEW.
--- NOTE | 2020-04-27 10:25 | NUR ---
CARDIZEM DRIP DECREASED TO 5MG/HR..
--- NOTE | 2020-04-27 11:25 | NUR ---
LASIX GIVEN PER ORDERS
--- NOTE | 2020-04-27 11:25 | NUR ---
CARDIzEM DRIP DECREASED TO 2.5 MG/HR HR AF /W RBBB RATE IN THE 80'S
[2020-04-27 12:24] LABS: ABG BASE EXCESS 5.9 mmol/L (-2.0-2.0); ARTERIAL BLOOD GAS PH 7.234 (7.35-7.45)
--- NOTE | 2020-04-27 14:25 | NUR ---
Nursing screen received and chart reviewed. Patient admitted with sepsis and pneumonitis. If patient should have a decline in ADLs from baseline then refer to OT for further assessment. Thank you. Skylar King OTR/l
--- NOTE | 2020-04-27 14:54 | NUR ---
1342 CARDIZEM DRIP ON HOLD FOR INTUBATION - IVF BOLUS STARTED PER ANESTHESIOLOGY. 200mg DIPRIVAN & 100 SUCCINYLCHOLINE GIVEN PER ANESTHESIOLOGY. INTUBATION WITH #8 UNSUCCESSFUL, PATIENT BEING BAGGED.. 1050 100mg DIPRIVAN GIVEN 1355 50mg DIPRIVAN & #4 LMA GIVEN TO ANESTHESIA. 1357 10mg ETOMIDATE GIVEN AND 7.5 INTUBATION LMA PLACED - CO2 ON MONITOR READING UPPER 60'S. 1402 10 ETOMIDATE & 50mg DIPRIVAN GIVEN PER ANESTHESIA 1405 50 ROCURIUM GIVEN PER ANESTHESIA 1411 #16 OGT PLACED BY ANESTHESIA AND PLACEMENT CHECKED WITH AIR BOLUS BY PRIMARY RN 1420 #18 RASHEED PLACED WITHOUT DIFFICYLTU - PT TOLERATED WELL/SEDATED. FOREIGN URINE OBTAINED. LEVOPHED STARTED AT 4mcg/MIN 1425 DIPRIVAN DRIP STARTED AT 30mcg 1447 RIJ-MLC BEING PLACED BY DR POZO AND LEVOPHED DECREASED TO 2mcg/MIN 1450 DIPRIVAN INCREASED TO 50MCG D/T PT MOVING.
[2020-04-27 15:24] LABS: BILIRUBIN 1+ (Negative); BLOOD Negative (Negative); COLOR Dark Yellow (Yellow); GLUCOSE Negative (Negative); KETONE Negative (Negative); LEUKO ESTERASE Negative (Negative); NITRITE Negative (Negative); SPECIFIC GRAVITY 1.015 (1.001-1.030)
[2020-04-27 15:46] LABS: CLARITY Clear (Clear)
[2020-04-27 16:02] LABS: BACTERIA TRACE; HYALINE CAST TNTC; RBC 0-2 rbc/hpf (0-2)
[2020-04-27 16:05] LABS: ABG BASE EXCESS 7.8 mmol/L (-2.0-2.0); ARTERIAL BLOOD GAS PH 7.386 (7.35-7.45)
--- NOTE | 2020-04-27 16:43 | NUR ---
PER REQUEST OF DR ZAMUDIO - SUCTIONED AGGRESSIVELY VIA ETT WITH PATIENT ON HIS BACK. DR ZAMUDIO CALLED AND TOLD LARGE MUCOUS PLUG. TOLD TO TURN RIGHT SIDE DOWN AND SUCTION AGGRESSIVELY THEN DO STAT CXR & CALL DR ZAMUDIO VIA IPAD SO HE CAN SEE FILM
[2020-04-27 18:10] LABS: ABG BASE EXCESS 7.5 mmol/L (-2.0-2.0); ARTERIAL BLOOD GAS PH 7.434 (7.35-7.45)
--- NOTE | 2020-04-27 19:09 | NUR ---
RETURNED FROM CT AFTER RADIOLOGIST WAS UNABLE TO VISUALIZE WHERE RIJ-MLC & OGT WAS LOCATED
--- NOTE | 2020-04-27 19:32 | NUR ---
TIDAL VOLUME TITRATED TO [address] ZAMUDIO ORDER. PT MEGAN WELL. WILL CONTUNUE TO MONITOR.
--- NOTE | 2020-04-27 19:33 | NUR ---
Shift chart check completed.24 HR chart check completed.
--- NOTE | 2020-04-27 19:43 | NUR ---
ON ASSESSMENT PATIENT IS RESTING EASILY IN BED, ADEQUATELY SEDATED ON DIPRIVAN AT 50MCG/KG/MIN. HE HAD JUST RETURNED FROM CT SCAN. LEVOPHED IS OFF WITH MAP >65. CARDIZEM IS OFF UNTIL MLC PLACEMENT CAN BE CONFIRMED. MONITOR IS AF WITH VR 125-135. RASHEED PATENT FOREIGN URINE. BODY IS EDEMA VS OBESITY. OGT IN PLACE. PULMOCARE STARTING AT 20ML/HR. SEE ALL APPROPRIATE INTERVENTIONS.
--- NOTE | 2020-04-27 20:04 | NUR ---
DR ZAMUDIO PHONED IN, OKAY TO USE MLC. CARDIZEM DRIP STARTED AT 5MG/HR. MEETING SPECIALIST NOTIFIED THAT ANESTHESIA NEEDED FOR PRONING PT.
--- NOTE | 2020-04-27 21:23 | NUR ---
PT'S DAUGHTER CALLED AND CONSENT FOR ARTERIAL LINE OBTAINED.
[2020-04-28] VITALS (24 sets, daily range): BP systolic 117–147; BP diastolic 68–86
--- NOTE | 2020-04-28 01:24 | NUR ---
ADOLFO GALLEGO CRNA ARRIVED AROUND 2200, SEVERAL ATTEMPTS TO INSERT ARTERIAL LINE WERE UNSUCCESSFUL. AT 2330 PATIENT WAS PLACED IN PRONE POSITION. AT SOME TIME, THE SUTURES HOLDING MLC PULLED AND THE MLC IS OUT SEVERAL INCHES. IT WAS SECURED IN PLACE WHERE IT WAS AND A STAT CXR (IN PRONE POSITION) HAS BEEN DONE WITH RESULTS PENDING. IN THE MEANTIME A #18 ACCUCATH HAS BEEN PLACED IN HIS RT UPPER ARM. ROCURONIUM WAS GIVEN PRIOR TO THE PRONING PROCEDURE AND NIMBEX HAS BEEN STARTED AT 0.2MCG/KG AND PT IS RESTING EASILY IN HIS PRON POSITION. CARE HAS BEEN TAKEN, USING PRONING PILLOW TO MINIMIZE PRESSURE TO HIS FACE AND GENITALS. HIS MONITOR HAS BEEN CONTINUES ATRIAL FIB, AT ONE POINT THE VENTRICULAR RESPONSE WAS IN THE 80'S WITH THE CARDIZEM BEING TITRATED DOWN TO 2.5MG/HR BUT AFTER PRONING THE VR HAS BEEN >130 WITH CARDIZEM TITRATED UP TO 10MG/HR. TUBE FEEDINGS ARE ON HOLD FOR BRONCHOSCOPY PLANNED FOR THE MORNING.
--- NOTE | 2020-04-28 02:12 | NUR ---
DR MCCAIN MADE AWARE THAT ART LINE WAS UNSUCCESSFUL AND THAT THE MLC WILL NEED REPLACED/REPOSITIONED AFTER PT IS UNPRONED IN THE MORNING. UPDATED HER ON HIS CURRENT MEDS/VITAL SIGNS.
[2020-04-28 02:45] LABS: ABG BASE EXCESS 10.4 mmol/L (-2.0-2.0); ARTERIAL BLOOD GAS PH 7.416 (7.35-7.45)
--- NOTE | 2020-04-28 03:16 | NUR ---
ABGS HAVE BEEN DRAWN AND CALLED TO DR ZAMUDIO BY RESPIRATORY THERAPIST.
[2020-04-28 06:14] LABS: ALBUMIN 3.3 gm/dl (3.1-4.5); ALKALINE PHOSPHATASE 61 U/L (45-117); BUN 40 mg/dl (7-24); CHLORIDE 98 mmol/L (98-107); CREATININE 1.33 mg/dL (0.70-1.30); POTASSIUM 4.5 mmol/L (3.5-5.1); SGOT/AST 13 IU/L (3-35); SGPT/ALT 19 U/L (12-78); SODIUM 137 mmol/L (136-145)
[2020-04-28 06:25] LABS: HEMATOCRIT 54.7 % (42.0-52.0); MEAN CORPUSCULAR HGB 26.3 pg (27.0-31.0); MEAN CORPUSCULAR HGB CONC 30.5 g/dl (33.0-37.0); MEAN PLATELET VOLUME 11.4 fl (9.6-12.3); NUCLEATED RED BLOOD CELL 0.1 10*3/uL (0.0-0.0); NUCLEATED RED BLOOD CELL 0.7 % (0.0-0.0); PLATELET COUNT AUTOMATED 263 10*3/uL (130-400); RED BLOOD COUNT 6.34 10*6/uL (4.50-5.90); RED CELL DISTRI WIDTH 17.2 % (0-14.5); WHITE BLOOD COUNT 16.1 10*3/uL (4.8-10.8)
[2020-04-28 06:27] LABS: MEAN CELL VOLUME 86.3 fl (80.0-94.0)
[2020-04-28 06:33] LABS: PLATELET SUFFICIENCY NORMAL (NORMAL); TOTAL CELLS COUNTED 100 #CELLS
[2020-04-28 08:00] LABS: ABG BASE EXCESS 10.1 mmol/L (-2.0-2.0); ARTERIAL BLOOD GAS PH 7.423 (7.35-7.45)
--- NOTE | 2020-04-28 08:15 | NUR ---
UNPRONED WITH REPIRATORY AND ANESTHESIA. MOVES ARMS IN AN ATTEMPT TO PULL ENDOTUBE OUT. VITALS STABLE. PULSE OX 95% ON VENT. DIPRIVAN GTT INFUSING AT 50 CARLITOS'S AND NIMBEX GTT INFUSING AT 0.3 CARLITOS'S/KG/MIN. CARDIZEM INFUSING AT 10MG/HR. RASHEED DRAINING CLEAR YELLOW URINE.
--- NOTE | 2020-04-28 08:40 | NUR ---
not available for echo, to have bronchoscopy done.
--- NOTE | 2020-04-28 09:55 | NUR ---
BEDSIDE BRONCH DONE AT BEDSIDE BY DR. ZAMUDIO. ENDOTUBE EXCHANGED WITH A #8 ENDOTUBE AT 29 LIP. CXR ORDERED
[2020-04-28 11:55] LABS: BF LYMPHOCYTES 3 %; BF MONOCYTES 1 %; BF NEUTROPHILS 96 %
--- NOTE | 2020-04-28 12:20 | NUR ---
dr. grimes here and exchanged [facility] mlc without difficulty. cxr ordered
[2020-04-28 12:46] LABS: ABG BASE EXCESS 11.6 mmol/L (-2.0-2.0); ARTERIAL BLOOD GAS PH 7.587 (7.35-7.45)
--- NOTE | 2020-04-28 12:56 | NUR ---
PT REMAINS ON VENT AT THIS TIME.
--- NOTE | 2020-04-28 14:00 | NUR ---
ART LINE PLACED IN RIGHT BRACHIAL BY ANESTHESIA. PRONED ONTO OTHER BED AND TRANSFERRED TO ROOM ICCU-4
[2020-04-28 16:17] LABS: ABG BASE EXCESS 11.5 mmol/L (-2.0-2.0); ARTERIAL BLOOD GAS PH 7.577 (7.35-7.45)
[2020-04-28 19:51] LABS: ABG BASE EXCESS 10.1 mmol/L (-2.0-2.0); ARTERIAL BLOOD GAS PH 7.547 (7.35-7.45)
--- NOTE | 2020-04-28 20:00 | NUR ---
PT RESTING IN BED IN PRONE POSITION. ENDOTUBE PATENT, TIES SECURE. OGT PATENT AND TF INFUSING ORDERED WITHOUT DIFFICULTY. DR ZAMUDIO NOTIFIED OF ABG RESULTS AND NEW ORDERS RECEIVED. RIGHT IJ MLC, ART LINE, ACCUCATH, AND HEPLOCK PATENT. IVF'S INFUSING ORDERED WITHOUT DIFFICULTY. VENT SETTINGS VERIFIED. NO ACUTE DISTRESS NOTED. RASHEED PATENT FOR CLEAR FOREIGN URINE.
[2020-04-28 21:41] LABS: ABG BASE EXCESS 10.1 mmol/L (-2.0-2.0); ARTERIAL BLOOD GAS PH 7.429 (7.35-7.45)
[2020-04-29] VITALS (24 sets, daily range): BP systolic 93–1140; BP diastolic 55–75
[2020-04-29 06:14] LABS: ALKALINE PHOSPHATASE 53 U/L (45-117); BUN 35 mg/dl (7-24); CHLORIDE 99 mmol/L (98-107); CREATININE 1.09 mg/dL (0.70-1.30); POTASSIUM 4.2 mmol/L (3.5-5.1); SGOT/AST 13 IU/L (3-35); SGPT/ALT 19 U/L (12-78); SODIUM 140 mmol/L (136-145); TOTAL PROTEIN 6.4 gm/dL (6.4-8.2)
[2020-04-29 06:16] LABS: BASO % 0.2 % (0.0-1.0); HEMATOCRIT 51.6 % (42.0-52.0); LYMPH # 0.6 10*3/uL (1.3-4.4); LYMPH % 4.2 % (27.0-41.0); MEAN CELL VOLUME 84.3 fl (80.0-94.0); MEAN CORPUSCULAR HGB 25.2 pg (27.0-31.0); MEAN CORPUSCULAR HGB CONC 29.8 g/dl (33.0-37.0); MEAN PLATELET VOLUME 10.5 fl (9.6-12.3); MONO # 0.7 10*3/uL (0.1-1.0); MONO % 5.4 % (3.0-9.0); NEUT # 11.9 10*3/uL (2.3-7.9); NEUT % 89.7 % (47.0-73.0); NUCLEATED RED BLOOD CELL 0.1 10*3/uL (0.0-0.0); NUCLEATED RED BLOOD CELL 0.5 % (0.0-0.0); PLATELET COUNT AUTOMATED 256 10*3/uL (130-400); RED BLOOD COUNT 6.12 10*6/uL (4.50-5.90); RED CELL DISTRI WIDTH 15.9 % (0-14.5); WHITE BLOOD COUNT 13.2 10*3/uL (4.8-10.8)
[2020-04-29 07:44] LABS: ABG BASE EXCESS 8.6 mmol/L (-2.0-2.0); ARTERIAL BLOOD GAS PH 7.355 (7.35-7.45)
--- NOTE | 2020-04-29 07:45 | NUR ---
SEDATED ON VENT. REMAINS ON NIMBEX GTT AND DIPRIVAN GTT. TURNED AND REPOSITIONED ONTO LEFT SIDE. BED AND BATH DONE. AFEBRILE. PULSE OX 97% ON VENT FIO2 50%. LUNGS CLEAR BILATERALLY. TOPS OF FEET PUFFY. RIJ MLC INTACT, RIGHT BRACHIAL ART LINE INTACT WITH GOOD HEMODYNAMIC RESPONSE. OGT CLAMPED WAITING ON CXR RESULTS
[2020-04-29 09:07] LABS: ACID FAST SPEC PROCESSING Concentration (.)
--- NOTE | 2020-04-29 11:11 | NUR ---
DR. ZAMUDIO HERE. NIMBEX AND DIPRIVAN TURNED OFF TO CHECK MENTAL STATUS.
--- NOTE | 2020-04-29 11:30 | NUR ---
DR. ZAMUDIO HERE AND PLACED #24 AZERI CHEST TUBE INTO RIGHT POSTERIOR LUNG WITHOUT ANY DIFFICULTY. CXR ORDERED
--- NOTE | 2020-04-29 11:45 | NUR ---
CHEST TUBE PLACED TO 20CM WALL SUCTION.
--- NOTE | 2020-04-29 12:19 | NUR ---
PT REMAINS ON VENT. WILL CONTINUE TO FOLLOW.
[2020-04-29 12:35] LABS: BODY FLUID WBC 179 /uL
[2020-04-29 13:56] LABS: BF LYMPHOCYTES 88 %; BF MACROPHAGES 5 %; BF MONOCYTES 4 %; BF NEUTROPHILS 3 %
[2020-04-30] VITALS (26 sets, daily range): BP systolic 80–132; BP diastolic 46–63
[2020-04-30 06:42] LABS: ABG BASE EXCESS 9.8 mmol/L (-2.0-2.0); ARTERIAL BLOOD GAS PH 7.364 (7.35-7.45)
--- NOTE | 2020-04-30 08:00 | NUR ---
PT REMAINS INTUBATED WITH A #8 ENDOTUBE,28CM AT HIS LIP. VSS. POX 98% ON 50% FIO2. LUNG NG ARE DIM. PT SUCTIONED FOR A SMALL AMOUNT OF WHITE MUCUS. RIGHT CHEST TUBE REMAINS TO 20CM SUCTION. SEROUS-SANG. FLUID NOTED IN TUBING. OGT PLACEMENT VERIFIED WITH AN AIR BOLUS. PULMOCARE TUBE FEEDING CONTINUE AT 20CC/HR. NO RESIDUAL NOTED AT THIS TIME. ABD. OBESE WITH ACTIVE BOWEL SOUNDS. RASHEED PATENT FOR CLOUDY FOREIGN URINE. 3+ PEDAL/ANKLE EDEMA NOTED. DEPENDANT EDEMA NOTED TO HANDS ALSO. PT TURNED AND REPOSITIONED FOR COMFORT AND PRESSURE ULCER PREVENTION. WILL CONTINUE TO MONITOR PT.
[2020-04-30 08:08] LABS: HEMATOCRIT 51.7 % (42.0-52.0); MEAN CELL VOLUME 84.8 fl (80.0-94.0); MEAN CORPUSCULAR HGB 25.2 pg (27.0-31.0); MEAN CORPUSCULAR HGB CONC 29.8 g/dl (33.0-37.0); MEAN PLATELET VOLUME 10.6 fl (9.6-12.3); NUCLEATED RED BLOOD CELL 0.3 % (0.0-0.0); PLATELET COUNT AUTOMATED 220 10*3/uL (130-400); RED CELL DISTRI WIDTH 15.6 % (0-14.5); WHITE BLOOD COUNT 14.1 10*3/uL (4.8-10.8)
[2020-04-30 08:26] LABS: ALBUMIN 3.1 gm/dl (3.1-4.5); ALKALINE PHOSPHATASE 55 U/L (45-117); BUN 35 mg/dl (7-24); CHLORIDE 99 mmol/L (98-107); CREATININE 1.06 mg/dL (0.70-1.30); POTASSIUM 4.4 mmol/L (3.5-5.1); SGOT/AST 20 IU/L (3-35); SGPT/ALT 15 U/L (12-78); SODIUM 140 mmol/L (136-145); TOTAL PROTEIN 6.7 gm/dL (6.4-8.2)
[2020-04-30 08:36] LABS: POLYCHROMASIA SLIGHT; SCHISTOCYTES FEW; TARGET CELLS FEW; TOTAL CELLS COUNTED 100 #CELLS
[2020-04-30 08:37] LABS: PLATELET SUFFICIENCY NORMAL (NORMAL)
--- NOTE | 2020-04-30 09:20 | NUR ---
IV DILAUDID AND IV NIMBEX GTTS PLACED ON HOLD FOR PT'S SEDATION VACATION. PT AWOKE AFTER 4-5 MINUTES. PT WAS ORIENTED TO PERSON AND ABLE TO FOLLOW SIMPLE COMANDS. I DID UPDATE PT ON HIS CONDITION AND PLAN OF CARE. I THEN PLACED PT BACK ON GTTS AT PREVIOUS RATES.
--- NOTE | 2020-04-30 11:17 | NUR ---
UPDATED DR BURGOS R/T PT'S INA 60-70 AND SBP 90-LOW 100'S ANND MY CONCERNS R/T WITH PT DUE TO RECEIVE COZAAR,MARGARITOPRESSOR,CARDURA AND NORVASC AT THIS TIME. DR BURGOS ORDERED TO GIVE COZAAR AND MARGARITOPRESSOR AND HOLD CARDURA NAD NORVASC AT THIS TIME.
--- NOTE | 2020-04-30 12:00 | NUR ---
PT GUSTAVO IN 50'S AND MAP RUNNING 60-63 AFTER PO LOPRESSOR AND COZAAR. DOCTOR AWARE.
[2020-04-30 12:06] LABS: ACID FAST SPEC PROCESSING Direct Inoculation (.)
--- NOTE | 2020-04-30 12:19 | NUR ---
DR ZAMUDIO IN TO SEE PT. NEW ORDERS RECEIVED. FIO2 DECREASED TO 40%. ABG IN 2 HOURS. RESP. THERAPY NOTIFIED.
[2020-04-30 15:05] LABS: ABG BASE EXCESS 10.4 mmol/L (-2.0-2.0); ARTERIAL BLOOD GAS PH 7.398 (7.35-7.45)
--- NOTE | 2020-04-30 15:11 | NUR ---
DR BURGOS IN TO SEE PT. UPDATED HIM ON PT'S BRADYCARDIA AND HYPOTENSION AFTER LOPRESSOR AND COZAAR GIVEN.
[2020-04-30 17:33] LABS: ABG BASE EXCESS 9.6 mmol/L (-2.0-2.0); ARTERIAL BLOOD GAS PH 7.397 (7.35-7.45)
--- NOTE | 2020-04-30 18:18 | NUR ---
PT RESTING. NO ACUTE DISTRESS NOTED.
--- NOTE | 2020-04-30 22:45 | NUR ---
PATIENT GIVEN COMPLETE BED BATH AND LINENS CHANGED AT THIS TIME. PATIENT TOLERATES WELL. CHEST TUBE DRESSING SATURATED WITH BLOOD, CHANGED AT THIS TIME PATIENT REPOSITIONED FOR COMFORT ON HIS LEFT SIDE. HOB ELEVATED, LEGS ELEVATED. PATIENT SUCTIONED AT THIS TIME WITH YANKAR AND ENCLOSED SUCTIONING. COPIOUS AMOUNTS OF CLEAR ORAL SECRETIONS RECEIVED. PULSE OX 94% AT THIS TIME. SEE ASSESSMENT.
[2020-05-01] VITALS (24 sets, daily range): BP systolic 94–137; BP diastolic 49–68
[2020-05-01 05:29] LABS: ALBUMIN 2.9 gm/dl (3.1-4.5); BUN 34 mg/dl (7-24); CHLORIDE 100 mmol/L (98-107); CREATININE 0.89 mg/dL (0.70-1.30); POTASSIUM 4.2 mmol/L (3.5-5.1); SGOT/AST 34 IU/L (3-35); SGPT/ALT 25 U/L (12-78); SODIUM 142 mmol/L (136-145); TOTAL PROTEIN 6.3 gm/dL (6.4-8.2)
[2020-05-01 05:30] LABS: ALKALINE PHOSPHATASE 48 U/L (45-117)
[2020-05-01 06:03] LABS: HEMATOCRIT 51.5 % (42.0-52.0); MEAN CELL VOLUME 84.7 fl (80.0-94.0); MEAN CORPUSCULAR HGB 24.3 pg (27.0-31.0); MEAN CORPUSCULAR HGB CONC 28.7 g/dl (33.0-37.0); MEAN PLATELET VOLUME 11.3 fl (9.6-12.3); NUCLEATED RED BLOOD CELL 0.1 % (0.0-0.0); PLATELET COUNT AUTOMATED 227 10*3/uL (130-400); RED BLOOD COUNT 6.08 10*6/uL (4.50-5.90); RED CELL DISTRI WIDTH 16.2 % (0-14.5); WHITE BLOOD COUNT 16.2 10*3/uL (4.8-10.8)
[2020-05-01 06:30] LABS: BASOPHILS 1 % (0-1); BURR CELLS FEW; PLATELET SUFFICIENCY NORMAL (NORMAL); POLYCHROMASIA SLIGHT; TOTAL CELLS COUNTED 100 #CELLS
--- NOTE | 2020-05-01 08:00 | NUR ---
PT REMAINS INTUBATED WITH A #8 ENDOTUBE, 28CM'S AT HIS LIP. POX 91% ON 40% FIO2. PT REMAINS ON DIPRIVAN AND NIMBEX GTTS FOR SEDATION. PT DOES AWAKEN WITH STIMULI WHILE ON THESE BUT HE WILL REST WELL WHEN NOT STIMULATED. PT IS ABLE TO FOLLOW SIMPLE COMMANDS. UPDATED PT ON HIS CONDITION AND PLAN OF CARE. MAP RUNNING 63-75 WITH HEART RATE RANGING 58-72. PT REMAINS AFEBRILE AT 97.9. SCATTERED RHONCHI NOTED THROUGHOUT LUNG NG. SUCTIONED PT FOR A SMALL AMOUNT OF WHITE MUCUS. RIGHT CHEST TUBE REMAINS AT 20CM SUCTION. BLDY DRAINAGE NOTED IN SUCTION TUBING. DRESSING TO CHEST TUBE DRY AND INTACT. OGT PLACEMENT VERIFIED WITH AN AIR BOLUS. TUBE FEEDINGS REMAINS AT 20CC/HR. NO RESIDUAL NOTED. RASHEED CATH PATENT FOR FOREIGN COLRED URNE WITH WITH ALOT OF SEDIMENT. 3+ LOWER LEG EDEMA ALSO NOTED. PT TURNED AND REPOSITIONED FOR COMFORT AND PRESSURE ULCER PREVENTION.
[2020-05-01 08:48] LABS: ABG BASE EXCESS 13.7 mmol/L (-2.0-2.0); ARTERIAL BLOOD GAS PH 7.448 (7.35-7.45)
[2020-05-01 12:01] LABS: ABG BASE EXCESS 13.9 mmol/L (-2.0-2.0); ARTERIAL BLOOD GAS PH 7.44 (7.35-7.45)
--- NOTE | 2020-05-01 12:18 | NUR ---
ROUTINE DILAUDID GIVEN PER ORDER. PT'S BP DROPPED TO 80 SYSTOLIC. WILL UPDATE DOCTOR.
--- NOTE | 2020-05-01 12:46 | NUR ---
DR ZAMUDIO UPDATED ON SECOND SET OF ABG'S. NO NEW ORDERS RECEIVED.
--- NOTE | 2020-05-01 13:03 | NUR ---
DR ZAMUDIO IN TO SEE PT. NEW ORDERS RECEIVED.
[2020-05-01 15:35] LABS: ABG BASE EXCESS 13.3 mmol/L (-2.0-2.0); ARTERIAL BLOOD GAS PH 7.43 (7.35-7.45)
--- NOTE | 2020-05-01 16:15 | NUR ---
DR ZAMUDIO CALLED IN REGARDING PT. NEW ORDERS RECEIVED.
--- NOTE | 2020-05-01 16:42 | NUR ---
COLUMBA DEVREASED TO +[address] ZAMUDIO'S ORDER, ABGS ORDERED 2 HOURS POST CHANGE.
[2020-05-01 19:37] LABS: ABG BASE EXCESS 13.1 mmol/L (-2.0-2.0); ARTERIAL BLOOD GAS PH 7.438 (7.35-7.45)
--- NOTE | 2020-05-01 20:28 | NUR ---
PT. RESTING QUIETLY ON DIPROVAN AND NIMBEX DRIP AT 20MICS AND 2MIC CONSECUTIVELY VIA RIJ MLC. LUNGS HAVE RHONCHI BILAT, ULSE OX 91% ON 40% FIO2 AT TIME OF ASSESSMENT. SINCE INCREASED FIO2 TO 45%, PULSE OX 95% CURRENTLY. LUNGS HAVE RHONCHI BILAT. ABDOMEN SOFTLY DISTENDED, MORBIDLY OBESE. EDEMA BS OBESITY. LARGE LOWER LEGS AND FEET, NONPITTING. RASHEED CATH DRAINING A CLDY YELLOW GREEN URINE. OGT HAS TF ORDERED, PLACEMENT CONFIRMED WITH AIR BOLUS AND AND NO RESIDUAL WAS NOTED. PT. GIVEN ORAL MOUTH CARE AND SUCTIONED VIA ENDO FOR MODERATE AMTS RESPECTIVELY. ART LINE IN RIGHT BRACHIAL LEVELED, ZEROED AND FLUSHED PER POLICY. CHEST TUBE DRAINING A BRIGHT RED DRAINAGE. WILL CONTINUE TO MONITOR. CRUZ ARVIZU RN
--- NOTE | 2020-05-01 21:20 | NUR ---
PT. VERY RESTLESS, TRYING TO TALK AND HEAD SHAKING. DIPROVAN INCREASED TO 30MICS. NIMBEX REMAINS AT 1MIC DUE TO POSSIBLE EXTUBATION IN AM. CRUZ ARVIZU RN
--- NOTE | 2020-05-01 22:00 | NUR ---
LOSARTAN AND CARDURA HELD DUE TO SBP IN THE 90-100'S AND LOPRESSOR GIVEN DIRECTED BY DR. NEAL THROUGH AM SHIFT. CRUZ ARVIZU RN
--- NOTE | 2020-05-01 23:12 | NUR ---
DILAUDID GIVEN ORDERED, PT. NOW RESTING WITH EYES CLOSED. CRUZ ARVIZU RN
[2020-05-02] VITALS (45 sets, daily range): BP systolic 60–141; BP diastolic 34–68
--- NOTE | 2020-05-02 05:34 | NUR ---
OGT REMOVED AND NG INSERTED PER ORDERS. PLACEMENT CONFIRMED WITH AIR BOLUS AND AWAITING AM CHEST X-RAY FOR PLACEMENT BEFORE RESTARTING TUBE FEEDINGS. CRUZ ARVIZU RN
--- NOTE | 2020-05-02 06:19 | NUR ---
DIPROVAN TITRATED BACK DOWN TO 20MICS IN PREPARATION FOR POSSIBLE EXTUBATION/WEANING TODAY. CRUZ ARVIZU RN
[2020-05-02 06:38] LABS: BUN 33 mg/dl (7-24); CHLORIDE 100 mmol/L (98-107); CREATININE 0.97 mg/dL (0.70-1.30); POTASSIUM 4.1 mmol/L (3.5-5.1); SGOT/AST 32 IU/L (3-35); SGPT/ALT 34 U/L (12-78); SODIUM 142 mmol/L (136-145)
[2020-05-02 06:39] LABS: ALKALINE PHOSPHATASE 47 U/L (45-117); TOTAL PROTEIN 6.5 gm/dL (6.4-8.2)
[2020-05-02 09:42] LABS: ABG BASE EXCESS 12.7 mmol/L (-2.0-2.0); ARTERIAL BLOOD GAS PH 7.446 (7.35-7.45)
--- NOTE | 2020-05-02 10:10 | NUR ---
SPOKE WITH DR. ZAMUDIO. BLOOD GAS RESULTS REVIEWED. PATIENT OFF OF SEDATION AT THIS TIME AND IS AWAKE AND RESPONSIVE. PATIENT CONDITION REVIEWED. ORDERS RECEIVED TO HOLD OFF ON CPAP MODE AT THIS TIME, RESUME SEDATION AND AWAIT FURTHER ORDERS.
--- NOTE | 2020-05-02 11:01 | NUR ---
TUBE FEED RESTARTED AT THIS TIME. NG TUBE PLACEMENT CONFIRMED.
--- NOTE | 2020-05-02 11:33 | NUR ---
ART LINE TUBING AND DRESSING CHANGED AT THIS TIME. ART LINE ZEROED.
--- NOTE | 2020-05-02 11:56 | NUR ---
DR ZAMUDIO CALLED IN WITH ORDERS, ENTERED.
--- NOTE | 2020-05-02 14:15 | NUR ---
PT REMAINS ON VENT. WILL CONTINUE TO FOLLOW.
--- NOTE | 2020-05-02 14:16 | NUR ---
PT BLOOD PRESSURE LOW AFTER BEING PLACED ON CPAP MODE. DR. POZO AT THE BEDSIDE. DR. NEAL AND DR. JOYCE NOTIFIED. 500CC BOLUS INITIATED. PATIENT PRESSURE IS TRENDING UP. WILL CONTINUE TO MONITOR.
[2020-05-02 15:02] LABS: ABG BASE EXCESS 11.3 mmol/L (-2.0-2.0); ARTERIAL BLOOD GAS PH 7.482 (7.35-7.45)
--- NOTE | 2020-05-02 15:23 | NUR ---
ABG'S REVIEWED WITH DR. ZAMUDIO. ORDERS RECEIVED TO KEEP PATIENT ON CPAP MODE THROUGHOUT THE NIGHT AND REPEAT ABG IN THE MORNING.
--- NOTE | 2020-05-02 16:30 | NUR ---
DR. ZMAUDIO NOTIFIED THAT PATIENT RIGHT SIDE WAS SATURATED WITH BLOOD.BLEEDING WAS COMING FROM CHEST TUBE INSERTION SITE. PATIENT IS ASYMPTOMATIC, PATIENT CONDITION REVIEWED. NOTIFIED THAT LABS WERE DRAWN AND CHEST X-RAY WAS TAKEN. ORDER TO GET A STAT READ ON THE CHEST X-RAY. DR. ZAMUDIO NOTIFIED THAT PATIENT WAS STARTED ON EPI DRIP PER DR. JOYCE FOR HYPOTENSION RELATED TO COZAAR AND METOPROLOL MEDICATIONS RECEIVED. LOVENOX, METOPROLOL AND COZAAR PLACED ON HOLD AT THIS TIME.
[2020-05-02 17:09] LABS: HEMATOCRIT 43.1 % (42.0-52.0); MEAN CELL VOLUME 84.8 fl (80.0-94.0); MEAN CORPUSCULAR HGB 25.6 pg (27.0-31.0); MEAN CORPUSCULAR HGB CONC 30.2 g/dl (33.0-37.0); MEAN PLATELET VOLUME 11.3 fl (9.6-12.3); PLATELET COUNT AUTOMATED 242 10*3/uL (130-400); RED BLOOD COUNT 5.08 10*6/uL (4.50-5.90); RED CELL DISTRI WIDTH 16.2 % (0-14.5); WHITE BLOOD COUNT 27.8 10*3/uL (4.8-10.8)
--- NOTE | 2020-05-02 17:30 | NUR ---
EPINEPHRINE DRIP WAS INNEFFECTIVE. PATIENT STILL HYPOTENSIVE WITH MAP<65. DR. JOYCE NOTIFIED. EPI DRIP STOPPED AND PATIENT STARTED ON LEVOPHED 4MCG.
[2020-05-02 17:33] LABS: TOTAL CELLS COUNTED 100 #CELLS
[2020-05-02 17:34] LABS: MICROCYTOSIS SLIGHT; PLATELET SUFFICIENCY NORMAL (NORMAL)
--- NOTE | 2020-05-02 20:09 | NUR ---
PT. RESTING IN BED. ALERT AND ORIENTED x3. REMAINS ON CPAP, WATCHING TV, SUCTIONING SELF AND GIVING SELF MOUTH CARE. LEVOPHED DRIP TITRATED DOWN FROM 10MICS TO 9MICS. INFUSING VIA RIJ MLC, ALL PORTS PATENT. SEDATION REMAINS OFF DO THE RESTRAINTS. PT. COOPERATIVE AND UNRESTRAINED PER PRIOR SHIFT. Greer COPELANDReid JOE HAS TF INFUSING ORDERED, PLACEMENT CONFIRMED WITH AIR BOLUS AND 20CC'S RESIDUAL WAS NOTED. RASHEED DRAINING A CLOUDY TEA COLORED URINE. ART LINE LEVELED, ZEROED AND FLUSHED PER POLICY. CHEST TUBE DRAINING A BRIGHT RED BLOODY DRAINAGE. DRESSING D/I. REMAINS TO 20CM SUCTION. CRUZ ARVIZU RN
--- NOTE | 2020-05-02 20:33 | NUR ---
DR. TOLBERT CALLED REGARDING LOPRESSOR ORDERED FOR 2199 WHILE ON LEVOPHED DRIP. PREVIOUSLY DOCTORS WANTED LOPRESSOR GIVEN WHEN B/P WAS LOW. DR. TOLBERT SUGGESTED CARDIOLOGY BE CALLED. DR. JOYCE NOTIFIED AND ASKED FOR GUIDANCE. ORDERS TO HOLD LOPRESSOR AT THIS TIME. CRUZ ARVIZU RN
--- NOTE | 2020-05-02 22:32 | NUR ---
LEVOPHED TITRATED DOWN TO 8 MICS.
--- NOTE | 2020-05-02 23:14 | NUR ---
PT. HAD LARGE AMT OF BRIGHT RED BLOOD FROM CHEST TUBE INSERTION SITE. SUTURES INTACT, LARGE CLOT AROUND SITE LEFT INTACT. PRESSURE DRESSING APPLIED. PT.GIVEN BED BATH AND BED LINEN CHANGED, TOLERATED WELL.
--- NOTE | 2020-05-02 23:29 | NUR ---
TYLENOL GIVEN FOR TEMP OF 101.3.
[2020-05-03] VITALS (59 sets, daily range): BP systolic 90–126; BP diastolic 50–65
--- NOTE | 2020-05-03 01:23 | NUR ---
CURRENT TEMP 100.8, TYLENOL MODERATELY EFFECTIVE.
--- NOTE | 2020-05-03 02:00 | NUR ---
PT'S CHEST TUBE DRESSING D/I. NO BLOODY DRAINAGE NOTED ON DRESSING. CRUZ ARVIZU RN
--- NOTE | 2020-05-03 05:06 | NUR ---
CHEST TUBE DRESSING REMAINS D/I AT THIS TIME.
[2020-05-03 05:41] LABS: ALBUMIN 2.8 gm/dl (3.1-4.5); BUN 31 mg/dl (7-24); CHLORIDE 103 mmol/L (98-107); POTASSIUM 3.7 mmol/L (3.5-5.1); SODIUM 140 mmol/L (136-145)
[2020-05-03 05:44] LABS: ALKALINE PHOSPHATASE 41 U/L (45-117); CREATININE 0.94 mg/dL (0.70-1.30); SGOT/AST 25 IU/L (3-35); SGPT/ALT 29 U/L (12-78)
[2020-05-03 06:13] LABS: HEMATOCRIT 40.5 % (42.0-52.0); MEAN CELL VOLUME 83.2 fl (80.0-94.0); MEAN CORPUSCULAR HGB 25.7 pg (27.0-31.0); MEAN CORPUSCULAR HGB CONC 30.9 g/dl (33.0-37.0); MEAN PLATELET VOLUME 11.5 fl (9.6-12.3); PLATELET COUNT AUTOMATED 247 10*3/uL (130-400); RED BLOOD COUNT 4.87 10*6/uL (4.50-5.90); RED CELL DISTRI WIDTH 16.2 % (0-14.5); WHITE BLOOD COUNT 19.8 10*3/uL (4.8-10.8)
--- NOTE | 2020-05-03 06:23 | NUR ---
DRESSING TO CHEST TUBE SITE REMAINS D/I AT THIS TIME. CRUZ ARVIZU RN
[2020-05-03 06:45] LABS: TOTAL CELLS COUNTED 100 #CELLS
[2020-05-03 06:46] LABS: PLATELET SUFFICIENCY NORMAL (NORMAL)
--- NOTE | 2020-05-03 07:27 | NUR ---
Shift chart check completed.
[2020-05-03 08:21] LABS: ABG BASE EXCESS 7.1 mmol/L (-2.0-2.0); ARTERIAL BLOOD GAS PH 7.448 (7.35-7.45)
--- NOTE | 2020-05-03 10:03 | NUR ---
PATIENT EXTUBATED BY ANESTHESIA PER REQUEST OF DR ZAMUDIO. PLACED ON BIPAP 20/10 50%.. PATIENT TOLERATED WELL..UNABLE TO GET ANOTHER SPUTUM SPECIMEN PRIOR TO EXTUBATION RESP THERAPY HAD ALREADY SUCTIONED HIM IN PREPARATION FOR EXTUBATION..RIJ-MLC SECURE & PATENT. HEPARIN PRESSURE BAG CHANGED. RT ARTLINE SECURE & PATENT WITH GOOD WAVEFORM AFTER ZERO'D & CALIBRATED. NGT SECURE & PATENT/ PLACEMENT CHECKED WITH AIR BOLUS. FEEDING HELD UNTIL EXTUBATED. RASHEED DRAINING.
--- NOTE | 2020-05-03 10:25 | NUR ---
PATIENT TOLERATING BIPAP WELL. 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 LEVOPHED DRIP AT 2mcg
[2020-05-03 12:04] LABS: ABG BASE EXCESS 5.4 mmol/L (-2.0-2.0); ARTERIAL BLOOD GAS PH 7.389 (7.35-7.45)
--- NOTE | 2020-05-03 18:37 | NUR ---
UNABLE TO FIND ANY SCD OR KRYSTA THAT WILL FIT THE PATIENT'S LEGS. TUBIGRIPS ARE SO TIGHT AND UNABLE TO GET THEM TO PULL UP HIS CALF.
--- NOTE | 2020-05-03 20:01 | NUR ---
PT. RESTING IN BED. Greer DIAZ HAS TUBE FEEDINGS INFUSING, PLACEMENT CONFIRMED WITH AIR BOLUS AND NO RESIDUAL WAS NOTED. RASHEED DRAINING A PALE FOREIGN URINE. LUNGS HAVE RHONCHI BILAT. PT. CURRENTLY ON BIPAP-40%. ABDOMEN SOFTLY DISTENDED, MORBIDLY OBESE. BILAT LOWER LEGS LARGE TO FEET. EDEMA BS OBESITY. RESP. EASY AND REG NO DISTRESS. CRUZ ARVIZU RN
[2020-05-04] VITALS: BP 104/57
[2020-05-04 04:00] VITALS: BP 104/57
--- NOTE | 2020-05-04 05:40 | NUR ---
DRESSING AROUND CHEST TUBE INSERTION SITE D/I. PT. REMAINS ON BIPAP FROM 2200 LAST NIGHT. TOLERATING WELL. CRUZ ARVIZU RN
[2020-05-04 06:28] LABS: ALBUMIN 2.8 gm/dl (3.1-4.5); BUN 27 mg/dl (7-24); CHLORIDE 107 mmol/L (98-107); POTASSIUM 3.7 mmol/L (3.5-5.1); SODIUM 143 mmol/L (136-145)
[2020-05-04 06:33] LABS: ALKALINE PHOSPHATASE 40 U/L (45-117); CREATININE 0.73 mg/dL (0.70-1.30); SGOT/AST 25 IU/L (3-35); SGPT/ALT 31 U/L (12-78); TOTAL PROTEIN 6.1 gm/dL (6.4-8.2)
[2020-05-04 06:46] LABS: HEMATOCRIT 39.4 % (42.0-52.0); MEAN CELL VOLUME 84.7 fl (80.0-94.0); MEAN CORPUSCULAR HGB 24.7 pg (27.0-31.0); MEAN CORPUSCULAR HGB CONC 29.2 g/dl (33.0-37.0); MEAN PLATELET VOLUME 11.6 fl (9.6-12.3); PLATELET COUNT AUTOMATED 240 10*3/uL (130-400); RED BLOOD COUNT 4.65 10*6/uL (4.50-5.90); WHITE BLOOD COUNT 18.5 10*3/uL (4.8-10.8)
[2020-05-04 07:22] LABS: BASOPHILS 1 % (0-1); TOTAL CELLS COUNTED 100 #CELLS
[2020-05-04 07:23] LABS: PLATELET SUFFICIENCY NORMAL (NORMAL)
[2020-05-04 07:32] LABS: ABG BASE EXCESS 7.1 mmol/L (-2.0-2.0); ARTERIAL BLOOD GAS PH 7.404 (7.35-7.45)
--- NOTE | 2020-05-04 07:40 | NUR ---
DR ROBB OTERO - ABG DONE BY RESP THERAPY - PLACED ON HFNC5L BUT SATS RUNNING 89% SO INCREASED TO HFNC6L..IRRITATED AREAS TO RT CHEEK (FROM ADHESIVE ON TUBE TAMER)..NGT PLACEMENT CHECKED WITH AIR BOLUS.. RT CHEST TUBE REMAINS INTACT WITHOUT BLOODY DRAINAGE, NO SIGNS OF AIR LEAK & NO NEW BLOODY DRAINAGE ON DRESSING.. IV SITES X2 ASYMPTOMATIC & PATENT..RASHEED DRAINING CLEAR STRAW URINE.. LEGS REMAIN EDEMATOUS BUT NOT TIGHT. RT ARM REMAINS EDEMATOUS.. TAKING CLEAR LIQUIDS WELL..OK TO REMOVE NGT LATER IF TOLERATED CLEAR LIQ BREAKFAST
[2020-05-04 08:00] VITALS: BP 119/53
--- NOTE | 2020-05-04 09:14 | NUR ---
PATIENT'S NGT CAUGHT & PULLED OUT - DR ZAMUDIO AWARE---DR LAIRD ROUNDED AND CASE DISCUSSED
--- NOTE | 2020-05-04 10:11 | NUR ---
PLACED BACK ON BIPAP - RT ARM ACCUCATH REMOVED.. ULTRASOUND HERE TO ASSESS FOR CLOT. PT EXPLAINED PROCEDURE. DR POZO AT BEDSIDE
--- NOTE | 2020-05-04 11:11 | NUR ---
WARM COMPRESS APPLIED TO RT HAND. REMAINS ON BIPAP
--- NOTE | 2020-05-04 11:26 | NUR ---
PT ON BIPAP AT THIS TIME
[2020-05-04 12:00] VITALS: BP 122/60
--- NOTE | 2020-05-04 13:15 | NUR ---
PHYSICAL THERAPY Physical Therapy evaluation completed in [facility] with full evaluation to follow. Recommend physical therapy per plan of care and SNF upon discharge. Thank you for this referral. Erin Nicholson PT
--- NOTE | 2020-05-04 14:00 | NUR ---
Occupational Therapy evaluation completed bedside in [facility] with full eval to follow. Precautions include [facility],oxygen dependent, bipap use,painful, edematous RUE,BLE with right heel wound, high complexity level 95753. Recommend OT per POC and [facility] v.s. SNF to enable return home alone at [facility]. Thank you for this referral. Skylar King OTR/L
--- NOTE | 2020-05-04 15:48 | NUR ---
EMERGENCY ROOM CLINICIAN IN TO SEE PT. PT STATES HE LIVES AT HOME ALONE AND IS INDEPENDENT IN HIS CARE. TALKED WITH HIM ABOUT A SKILLED STAY PRIOR TO GOING HOME BUT HE REFUSES. DID AGREE TO HOME HEALTH. STATES HE HAS HAD [facility] IN THE PAST AND LIKED THEM SO HE WOULD LIKE THEM AGAIN. WILL CONTINUE TO FOLLOW.
[2020-05-04 16:00] VITALS: BP 110/60
--- NOTE | 2020-05-04 18:20 | NUR ---
PER PT THE RT HEEL HAD SOMETHING IRRITATING HIM PRIOR TO COMING IN BUT THE DAUGHTER COULDN'T SEE ANYTHING. NOTHING WAS SEEN ON PREVIOUS ASSESSMENTS BUT TODAY IT APPEARS BLACK & MORE BOGGY - SUREPREP APLIED AND HEEL RISERS PLACED.
[2020-05-04 20:00] VITALS: BP 106/67
--- NOTE | 2020-05-04 23:00 | NUR ---
PATIENT IS REFUSING TO WEAR BIPAP AT ALL. PATIENT DENIES ANY NEEDS AT THIS TIME.
[2020-05-05] VITALS (11 sets, daily range): BP systolic 93–126; BP diastolic 47–75
--- NOTE | 2020-05-05 | NUR ---
PATIENT REFUSING BIPAP. 6LHF NASAL CANNULA IN USE
[2020-05-05 06:27] LABS: HEMATOCRIT 37.7 % (42.0-52.0); MEAN CELL VOLUME 84.9 fl (80.0-94.0); MEAN CORPUSCULAR HGB 25.2 pg (27.0-31.0); MEAN CORPUSCULAR HGB CONC 29.7 g/dl (33.0-37.0); MEAN PLATELET VOLUME 11.2 fl (9.6-12.3); PLATELET COUNT AUTOMATED 238 10*3/uL (130-400); RED BLOOD COUNT 4.44 10*6/uL (4.50-5.90); RED CELL DISTRI WIDTH 15.9 % (0-14.5); WHITE BLOOD COUNT 20.6 10*3/uL (4.8-10.8)
[2020-05-05 06:46] LABS: BUN 18 mg/dl (7-24); CHLORIDE 103 mmol/L (98-107); POTASSIUM 3.4 mmol/L (3.5-5.1); SODIUM 140 mmol/L (136-145)
[2020-05-05 06:49] LABS: CREATININE 0.61 mg/dL (0.70-1.30)
[2020-05-05 07:20] LABS: TOTAL CELLS COUNTED 100 #CELLS
[2020-05-05 07:21] LABS: PLATELET SUFFICIENCY NORMAL (NORMAL)
--- NOTE | 2020-05-05 09:00 | NUR ---
PT TAKEN TO SURGERY DEPT FOR JO[facility]
--- NOTE | 2020-05-05 09:37 | NUR ---
Spoke with Dr. Barrios regarding consult.
--- NOTE | 2020-05-05 09:39 | NUR ---
OT NOTE Attempted to see pt this A.M. for OT session and upon arrival pt was out of the room for a medical procedure. Will check back at a later time/date and continue with POC as able. RENE Puckett/Greer
--- NOTE | 2020-05-05 12:07 | NUR ---
Patient requesting [facility] upon discharge. Received order, faxed referral, will need a face to face completed and faxed.
--- NOTE | 2020-05-05 14:15 | NUR ---
PHYSICAL THERAPY TREATMENT TIME: OUT 2:15 PM 18 MINUTES TOTAL 1:1 WITH THIS ORTHOTIC ASSISTANT PRESENTATION: Patient was supine in bed with head of bed elevated NG TUBE, MULTIPLE IVs, monitor wires, O2 6 LITERS spO2, CHEST TUBE in place. Informed consent given for treatment Identified by name and on wristband Edemous LEs and feet Patient is bilateral LEs and feet COMPLAINTS: PAIN IN THE BILATERAL LEs and Bilateral feet WB STATUS: R HEEL BLISTER ASSISTIVE DEVICE: TRANSFERS: Supine > sit EOB: SBA Sit EOB: SBA 10 MINUTES TOTAL Sit > supine: MIN A X 1 for assistance with LEs TREATMENT: SUZY LE ther ex 2 x10 reps each LAQs and ANKLE PUMPS and CIRCLES for strengthening and ROM. R heel blister is protected during ther ex RESPONSE TO TREATMENT: Patient tolerated ther ex with no increased pain in LEs or feet Patient was able to tolerate 10 minutes sitting at EOB and said "it feels great to sit up". O2 recorded as 92% post therapy session CONCLUSION: Patient was left in supine in bed with head of bed elevated and call light within reach. Chest tube, IV lines, O2 line, Monitor line put in proper place and managed correctly during transfers. Boots put on bilateral LEs to protect heels JF BANDA ORTHOTIC ASSISTANT
--- NOTE | 2020-05-05 14:18 | NUR ---
OT NOTE Pt was seen this P.M. 1:1 for 25 minute OT session. Upon arrival pt was supine in bed. Pt identified by name and and had no complaints at this time. Pt presented to therapy with continuous 6L-O2 via NC which he remained on throughout the entire session. Pt presented with moderate edema in his RUE compared to his LUE. Pt completed pumping exercises 2 x 10, provided education on elevating above heart level, and also completed retrograde massage. Pt tolerated all good with no complaints. Pt then transferred supine to sit EOB with Radha for assist with upper body. While sitting EOB challenged pt's dynamic sitting balance while weight shifting, crossing midline, and reaching over all planes. Pt was able to maintain F+/G- sitting balance. Pt tolerated sitting EOB for aprox 10 minutes before requesting to lay back down due to fatigue. Pt transferred sit to supine with Radha for assist with BLE's and was repositioned in bed with maxA X 2. There he was left with call light in hand, tray table in place, and under [facility] nurse supervision. Continue with POC as able. RENE Puckett/Greer
--- NOTE | 2020-05-05 16:26 | NUR ---
PHYSICAL THERAPY Nursing screen received. Patient is already on PT caseload. Will continue to follow. Thank you. Marion Christopher,PT,DPT
--- NOTE | 2020-05-05 21:00 | NUR ---
PATIENT RESTING COMFORTABLY IN THE BED AT THIS TIME. PATIENT REFUSING A BATH TONIGHT, STATES HE HAD A BATH LAST NIGHT AND THAT HE DID NOT SLEEP MUCH THE PREVIOUS NIGHT. PLANNING TO ASK AGAIN LATER. PATIENT DENIES ANY PAIN OR DISCOMFORT. CALL LIGHT WITHIN REACH, HOB ELEVATED. LEFT LEG ELEVATED, CALL LIGHT WITHIN REACH.SEE ASSESSMENT.
[2020-05-06] VITALS: BP 116/61
--- NOTE | 2020-05-06 01:30 | NUR ---
PATIENT TAKEN OFF OF BIPAP AND PLACED BACK ON 6L HI-FLOW NC AT THIS TIME. PATIENT STATES HE DOESN'T WANT THE BIPAP ON ANYMORE TONIGHT. PATIENT STILL REFUSING A BATH TONIGHT. CALL LIGHT WITHIN REACH.
[2020-05-06 04:00] VITALS: BP 117/62
[2020-05-06 05:36] LABS: ALBUMIN 2.7 gm/dl (3.1-4.5); ALKALINE PHOSPHATASE 43 U/L (45-117); BUN 14 mg/dl (7-24); CHLORIDE 100 mmol/L (98-107); POTASSIUM 3.4 mmol/L (3.5-5.1); SGOT/AST 19 IU/L (3-35); SGPT/ALT 34 U/L (12-78); SODIUM 139 mmol/L (136-145); TOTAL PROTEIN 6.1 gm/dL (6.4-8.2)
[2020-05-06 06:23] LABS: MEAN CELL VOLUME 85.8 fl (80.0-94.0); MEAN CORPUSCULAR HGB 25.7 pg (27.0-31.0); MEAN PLATELET VOLUME 11.9 fl (9.6-12.3); PLATELET COUNT AUTOMATED 236 10*3/uL (130-400); RED BLOOD COUNT 4.43 10*6/uL (4.50-5.90); RED CELL DISTRI WIDTH 16.2 % (0-14.5); WHITE BLOOD COUNT 19.7 10*3/uL (4.8-10.8)
--- NOTE | 2020-05-06 06:27 | NUR ---
CHEST TUBE DRAINAGE SYSTEM CHANGED AT THIS TIME. PATIENT TOLERATED WELL. CALL LIGHT WITHIN REACH.
--- NOTE | 2020-05-06 06:28 | NUR ---
DR. HUMPHRIES NOTIFIED OF BLOOD CULTURE RESULTS AND MORNING LABS REVIEWED. NO FURTHER ORDERS AT THIS TIME.
[2020-05-06 06:53] LABS: TOTAL CELLS COUNTED 100 #CELLS
[2020-05-06 06:54] LABS: PLATELET SUFFICIENCY NORMAL (NORMAL); POLYCHROMASIA SLIGHT; ROULEAUX SLIGHT; TARGET CELLS FEW
[2020-05-06 08:00] VITALS: BP 117/64
--- NOTE | 2020-05-06 08:42 | NUR ---
ALTERNATIVE EDUCATION TEACHER EMAILED REFERRAL TO [facility] FOR REVIEW.
--- NOTE | 2020-05-06 09:10 | NUR ---
PHYSICAL THERAPY Patient seen this am 1:1 for therapy visit and was supine in bed upon therapist arrival. Patient identified by name / and was joined by OT printing bindery assistant for observation this session. Patient presented with continuos O2-6L via NC and recoded resting SpO2 93%, HR 86 bpm prior to transfering supine to sit EOB with MOD A x 2. Patient tolerated a few minutes static EOB sit, SBA, then completed several sit to stand transfers, use of wh walker standing support, MOD A, tolerating approx 1 minute static stand each trial. Patient also completed SPT to bedside chair, MIN A, demonstrating unsteady step sequence and increased fatigue. Patient recorded Spo2 91%, HR 95 bpm and remained in bedside chair with tray table, under [facility] Nursing Supervison. Will continue per POC as tolerated, total treatment time 14 minutes. Golden Ritchie, BIT WELDER
--- NOTE | 2020-05-06 09:26 | NUR ---
OT NOTE Pt was seen this A.M. 1:1 for 27 minute OT session. Upon arrival pt was supine in bed. Pt identified by name and and complaints of 8/10 R hand and foot pain. Pt presented to therapy with continuous 6L-O2 via NC and chest tube in place which both remained in place throughout the entire session. Pt's resting SpO2 read 93% and heart rate 88 bpm. Pt's R hand presented with moderate edema and was slightly warm to touch compared to L hand. Completed pumping exercises 2 X 10 followed by retrograde massage to RUE. No complaints throughout. Pt then transferred supine to sit EOB with SBA. While sitting EOB challenged pt's dynamic sitting balance while weight shifting, crossing midline, and reaching over all planes. Pt was able to maintain F+/G- sitting balance throughout. Socks donned with maxA. Sit to stand completed from bed level with Radha X 2 and use of w/w for UE support. Challenged pt's static standing tolerance needed for increased I in self care tasks and functional transfers. Pt was able to tolerate aprox 60 seconds before sitting due to fatigue. Second sit to stand completed with Radha X 2 followed by standing pivot from the EOB to the recliner with CGA and use of w/w. Throughout activity pt's heart rate read 102 bpm and SpO2 read 91%. Pt was left sitting upright in the recliner with RUE elevated for edema control, call light in hand, tray table in place, and under [facility] nurse supervision. Continue with POC as able. STEPHANIE Puckett
[2020-05-06 12:00] VITALS: BP 130/73
--- NOTE | 2020-05-06 12:00 | NUR ---
AT BEDSIDE. BEDSIDE I&D DONE TO RIGHT HEEL. PRE AND POST DEBRIDEMENT PHOTOS TAKEN. DRESSING APPLIED.
--- NOTE | 2020-05-06 15:49 | NUR ---
PHYSICAL THERAPY CO-SIGN I approve of the Physical Therapy notes written above. Erin Nicholson PT
[2020-05-06 16:00] VITALS: BP 133/67
--- NOTE | 2020-05-06 18:50 | NUR ---
CHART CHECK COMPLETE.
--- NOTE | 2020-05-06 19:59 | NUR ---
SITTING IN HIGH KAUR POSITION WHILE EATING SNACK. NO DISTRESS. NO COMPLAINTS VOICED.
[2020-05-06 20:00] VITALS: BP 132/65
--- NOTE | 2020-05-06 22:38 | NUR ---
PATIENT REFUSED TO GO ON BIPAP FOR THE NIGHT. PATIENT CURRENTLY 97% ON 6L/M HFNC.
[2020-05-07] VITALS: BP 136/70
--- NOTE | 2020-05-07 | NUR ---
PT AWAKENS EASILY FOR ASSESSMENT/VITAL SIGNS. RESPONDS APPROPRIATELY. CONTINUES TO REFUSE BIPAP AT THIS TIME. WILL MONITOR CLOSELY.
--- NOTE | 2020-05-07 02:17 | NUR ---
PT SLEEPING WITH EVEN,UNLABORED RESPIRATIONS.
[2020-05-07 04:00] VITALS: BP 132/66
[2020-05-07 05:53] LABS: BUN 14 mg/dl (7-24); CHLORIDE 99 mmol/L (98-107); POTASSIUM 3.7 mmol/L (3.5-5.1); SODIUM 140 mmol/L (136-145)
[2020-05-07 07:15] LABS: HEMATOCRIT 37.9 % (42.0-52.0); MEAN CELL VOLUME 85.7 fl (80.0-94.0); MEAN CORPUSCULAR HGB 25.3 pg (27.0-31.0); MEAN CORPUSCULAR HGB CONC 29.6 g/dl (33.0-37.0); PLATELET COUNT AUTOMATED 261 10*3/uL (130-400); RED BLOOD COUNT 4.42 10*6/uL (4.50-5.90); RED CELL DISTRI WIDTH 15.9 % (0-14.5); WHITE BLOOD COUNT 17.9 10*3/uL (4.8-10.8)
[2020-05-07 07:55] LABS: BASOPHILS 2 % (0-1); TOTAL CELLS COUNTED 100 #CELLS
[2020-05-07 07:56] LABS: PLATELET SUFFICIENCY NORMAL (NORMAL); POLYCHROMASIA SLIGHT
[2020-05-07 07:57] LABS: ROULEAUX SLIGHT
[2020-05-07 08:00] VITALS: BP 116/58
--- NOTE | 2020-05-07 08:00 | NUR ---
PT AAOX3. VSS. RESP EASY. LUNGS DIM. WITH SCATTERED RHONCHI. MOIST PRODUCTIVE COUGH NOTED. RIGHT CHEST TUBE REMAINS TO 20CM SUCTION. SMALL AMOUNT OF BLOODY FLUID NOTED IN SUCTION TUBING. ABD. OBESE WITH ACTIVE BOWEL SOUNDS. RASHEED CATH PATENT FOR DARK STRAW COLORED URINE. DRESSING TO RIGHT FOOT D/I. BILAT. LOWER LEG EDEMA NOTED. PT DENIES COMPLAINTS AT THIS TIME. NO ACUTE DISTRESS NOTED. WILL CONTINUE TO MONITOR PT.
--- NOTE | 2020-05-07 08:37 | NUR ---
PT'S POX 88-91% ON 6 L HIGH ANEESH OXYGEN. PT DENIES SOB. EDUCATED PT ON NEED TO WEAR BIPAP AT NIGHT AT LEAST. PT VERBALIZED UNDERSTANDING.
--- NOTE | 2020-05-07 10:23 | NUR ---
DR NEAL IN TO SEE PT.
[2020-05-07 12:00] VITALS: BP 115/59
--- NOTE | 2020-05-07 12:37 | NUR ---
DR ZAMUDIO IN TO SEE PT. DR ZAMUDIO REMOVED PT'S RIGHT CHEST TUBE. DRESSING APPLIED. DR ZAMUDIO STATED SUTURES TO BE REMOVED IN 5 DAYS.
[2020-05-07 16:00] VITALS: BP 137/72
--- NOTE | 2020-05-07 18:13 | NUR ---
PT UP TO CHAIR WITH 1 ASSIST. PT DENIES COMPLAINTS. NO ACUTE DISTRESS NOTED.
--- NOTE | 2020-05-07 19:55 | NUR ---
PATIENT BATHED AT THIS TIME, TOLERATED WELL, BED CHANGED AT THIS TIME WELL.. FRESH ICE WATER PROVIDED.
[2020-05-07 20:00] VITALS: BP 127/71
--- NOTE | 2020-05-07 21:18 | NUR ---
PATIENT MEDICATED WITH RESTORIL PER DRS ORDERS FOR COMPLANITS OF DIFFICULTY SLEEPING. RN WILL MONITOR FOR EFFECTIVENESS
--- NOTE | 2020-05-07 22:05 | NUR ---
RESPIRATORY MADE AWARE THAT PATIENT IS WILLING TO TRY TO WEAR THE BIPAP TONIGHT
--- NOTE | 2020-05-07 23:05 | NUR ---
PLACED ON BIPAP AT THIS TIME, TOLERATING WELL
--- NOTE | 2020-05-07 23:50 | NUR ---
RESPIRATORY MADE AWARE OF PATIENTS BIPAP CONSTANTLY ALARMING. STAETS THEY WILL BE UP TO CHECK.
[2020-05-08] VITALS: BP 122/77
--- NOTE | 2020-05-08 03:45 | NUR ---
PATIENT HAS TAKEN OWN BIPAP OFF AT THIS TIME, OXYGEN WAS APPLIED BY THIS RN. PO2 SATURATION REMAINED ABOVE 94%. STATES MEDICATION HE RECIEVED LAST NIGHT "REALLY HELPED HIM RELAX"
[2020-05-08 04:00] VITALS: BP 123/67
--- NOTE | 2020-05-08 05:35 | NUR ---
RASHEED CATHETER OUT AT THIS TIME, PATIENT TOLERATED WELL, EDUCATED ON URINAL USEAGE AND CALL LIGHT IF ASSISTANCE IS NEEDED. PATIENT VERBALIZED UNDERSTANDING. RN WILL CONTINUE TO MONITOR
--- NOTE | 2020-05-08 06:41 | NUR ---
PATIENT HAS URINATED 100ML OF CLEAR STRAW COLORED URINE
[2020-05-08 07:29] LABS: BUN 14 mg/dl (7-24); CHLORIDE 94 mmol/L (98-107); CREATININE 0.58 mg/dL (0.70-1.30); POTASSIUM 3.5 mmol/L (3.5-5.1); SODIUM 136 mmol/L (136-145)
[2020-05-08 07:48] LABS: HEMATOCRIT 38.1 % (42.0-52.0); MEAN CELL VOLUME 86.6 fl (80.0-94.0); MEAN CORPUSCULAR HGB 25.7 pg (27.0-31.0); MEAN CORPUSCULAR HGB CONC 29.7 g/dl (33.0-37.0); MEAN PLATELET VOLUME 10.5 fl (9.6-12.3); PLATELET COUNT AUTOMATED 270 10*3/uL (130-400); RED CELL DISTRI WIDTH 16.1 % (0-14.5); WHITE BLOOD COUNT 17.9 10*3/uL (4.8-10.8)
[2020-05-08 08:00] VITALS: BP 120/56
[2020-05-08 08:11] LABS: BASOPHILS 1 % (0-1); PLATELET SUFFICIENCY NORMAL (NORMAL); POLYCHROMASIA SLIGHT; STOMATOCYTE FEW; TOTAL CELLS COUNTED 100 #CELLS
--- NOTE | 2020-05-08 09:24 | NUR ---
DR JOYCE HERE, PT SEEN, ORDERS RECEIVED
--- NOTE | 2020-05-08 10:53 | NUR ---
DR NEAL HERE AND SAW PATIENT, DOWNGRADED TO IMC. O2 DECREASED TO [id number] SATS HOLDING 91-92%
[2020-05-08 12:00] VITALS: BP 121/64
--- NOTE | 2020-05-08 14:48 | NUR ---
HEEL RAISERS ON BILAT WHILE SITTING UP IN CHAIR
[2020-05-08 16:00] VITALS: BP 132/75
[2020-05-08 20:00] VITALS: BP 134/74
--- NOTE | 2020-05-08 21:07 | NUR ---
PATIENT MEDICATED WITH RESTORIL FOR COMPLAINTS OF RESTLESSNESS AND INABILITY TO SLEEP. PATIENT ALSO STATES THAT THIS MEDICATION HELPED LAST NIGHT AND MADE HIM ABLE TO TOLERATE THE BIPAP. RN WILL MONITOR FOR EFFECTIVENESS
--- NOTE | 2020-05-08 22:00 | NUR ---
BIPAP ON AT THIS TIME
[2020-05-09] VITALS: BP 118/61
--- NOTE | 2020-05-09 03:00 | NUR ---
NEW BIPAP MASK APPLIED BY RESPIRATORY, PATIENT TOLERATING MUCH EASIER AND TIDAL VOLUMES HAVE IMPROVED SINCE. RN WILL CONTINUE TO MONITOR
--- NOTE | 2020-05-09 05:10 | NUR ---
BIPAP OFF AT THIS TIME.
[2020-05-09 06:16] LABS: BUN 14 mg/dl (7-24); CHLORIDE 96 mmol/L (98-107); CREATININE 0.66 mg/dL (0.70-1.30); POTASSIUM 3.7 mmol/L (3.5-5.1); SODIUM 137 mmol/L (136-145)
[2020-05-09 06:17] LABS: HEMATOCRIT 37.9 % (42.0-52.0); MEAN CELL VOLUME 87.3 fl (80.0-94.0); MEAN CORPUSCULAR HGB 25.3 pg (27.0-31.0); MEAN PLATELET VOLUME 11.2 fl (9.6-12.3); PLATELET COUNT AUTOMATED 325 10*3/uL (130-400); RED BLOOD COUNT 4.34 10*6/uL (4.50-5.90); RED CELL DISTRI WIDTH 16.3 % (0-14.5); WHITE BLOOD COUNT 16.7 10*3/uL (4.8-10.8)
--- NOTE | 2020-05-09 06:53 | NUR ---
Shift chart check completed.
[2020-05-09 06:58] LABS: BASOPHILS 2 % (0-1); PLATELET SUFFICIENCY NORMAL (NORMAL); POLYCHROMASIA SLIGHT; TOTAL CELLS COUNTED 100 #CELLS
[2020-05-09 06:59] LABS: SCHISTOCYTES FEW
--- NOTE | 2020-05-09 07:50 | NUR ---
PHYSICAL THERAPY Screen received pt has already been evaluated and is on caseload thank you Erin Nicholson PT
[2020-05-09 08:00] VITALS: BP 122/63
--- NOTE | 2020-05-09 08:50 | NUR ---
OT NOTE Pt was seen this A.M. 1:1 for 25 minute OT session. Upon arrival pt was supine in bed. Pt identified by name and and had no complaints at this time. Pt presented to therapy with continuous 5L-O2 via NC which he remained on throughout the entire session, pt's resting heart rate read 71 bpm. Pt's RUE presented with min edema compared to LUE. Completed pumping exercises for edema control to RUE for 2 X 10 followed by retrograde massage to RUE. Pt transferred supine to sit EOB with Radha for assist with upper body. While sitting EOB challenged pt's sitting balance while weight shifting, crossing midline, and reaching over all planes. Pt was able to maintain G- sitting balance throughout. One sit to stand completed from the EOB with modA and use of w/w for UE support followed by side stepping up to the head of bed with CGA and use of w/w. Pt tolerated sitting EOB for aprox 15 minutes before requesting to lay back down due to fatigue. Throughout activity pt's heart rate elevated to 75 bpm. There he transferred back into bed sit to supine with Radha for assist with BLE's. There he was left with call light in hand, tray table in place, and bed alarm activated for safety. Continue with POC as able. STEPHANIE Puckett
--- NOTE | 2020-05-09 10:51 | NUR ---
PATIENT SLEEPING RESP EAY AND NONLABORED ON NC5L
--- NOTE | 2020-05-09 10:53 | NUR ---
DR NEAL ROUNDED AND SPOKE WITH THE PATIENT
--- NOTE | 2020-05-09 11:40 | NUR ---
PHYSICAL THERAPY Patient seen this am 1;1 for therapy visit and was resting supine in bed upon therapist arrival. Patient identified by name / and presents with both IV treatment / continuos O2-4L via NC. Patient voices no c/o's pain and transfers supine to sit EOB with MIN A x 1. Patient tolerates several minutes static EOB sit to collect himself, then sit to stand MIN A with use of wh walker standing support. Patient also completed SPT to bedside chair, CGA, wh walker, demonstrating very slow, cautious step sequence. Patient remained in chair with call light, tray table and telephone. Will continue per POC as tolerated, total treatment time 15 minutes. Golden Ritchie, ANIMAL CARETAKER
[2020-05-09 12:00] VITALS: BP 112/54
--- NOTE | 2020-05-09 14:02 | NUR ---
PT HAS AGREED TO SNF NOW PER DR NEAL. WILL TALK WITH PT ABOUT WHAT FACILITY HE WANTS.
[2020-05-09 16:00] VITALS: BP 134/70
--- NOTE | 2020-05-09 16:00 | NUR ---
LATE ENTRY. SPOKE WITH PT AND HE IS AGREEABLE TO SNF. GAVE NAMES OF LOCAL FACILITIES AND HE CHOSE [facility].
--- NOTE | 2020-05-09 16:45 | NUR ---
PATIENT SLEEPING - RESP EASY & NONLABORED
[2020-05-09 20:00] VITALS: BP 117/55
--- NOTE | 2020-05-09 22:00 | NUR ---
PT REFUSED BIPAP
--- NOTE | 2020-05-09 22:00 | NUR ---
PT REFUSES BATH. STATES THAT HE IS LEAVING TO [facility] TOMORROW SO DOES NOT WANT ONE.
[2020-05-10] VITALS: BP 121/62
[2020-05-10 06:00] LABS: HEMATOCRIT 38.6 % (42.0-52.0); MEAN CORPUSCULAR HGB 25.2 pg (27.0-31.0); MEAN CORPUSCULAR HGB CONC 29.3 g/dl (33.0-37.0); MEAN PLATELET VOLUME 11.1 fl (9.6-12.3); PLATELET COUNT AUTOMATED 366 10*3/uL (130-400); RED BLOOD COUNT 4.49 10*6/uL (4.50-5.90); RED CELL DISTRI WIDTH 16.6 % (0-14.5); WHITE BLOOD COUNT 15.6 10*3/uL (4.8-10.8)
[2020-05-10 06:31] LABS: BUN 14 mg/dl (7-24); CHLORIDE 98 mmol/L (98-107); CREATININE 0.62 mg/dL (0.70-1.30); POTASSIUM 3.5 mmol/L (3.5-5.1); SODIUM 139 mmol/L (136-145)
[2020-05-10 07:20] LABS: BASOPHILS 3 % (0-1); PLATELET SUFFICIENCY NORMAL (NORMAL); TOTAL CELLS COUNTED 100 #CELLS
[2020-05-10 08:00] VITALS: BP 104/57
--- NOTE | 2020-05-10 08:32 | NUR ---
[facility] stating patient no longer meets LTACH criteria, unable to accept. Patient requesting a referral to the [facility]. Contacted Maeve and faxed referral. Covid is pending, asked facility to review and if accepted please start precert today.
--- NOTE | 2020-05-10 10:10 | NUR ---
PHYSICAL THERAPY Patient seen this am 1:1 for therapy visit and was sitting on BSC upon therapist arrival, requesting transfer to bedside chair. Patient identified by name / and reports no new c/o's at this time. Patient presented with increased B LE edema, mostly in his feet and transfers sit to stand MIN/DOCUMENT CONTROL SPECIALIST. Patient completed SPT to bedside chair, DOCUMENT CONTROL SPECIALIST/MIN, demonstrating very cautious step sequence, requiring v/c to improve standing upright posture. Patient needed v/c to improve safe stand to sit technique to avoid "plopping" down into chair. Patient performed several additional sit to stand transfers from low chair surface, MOD/DOCUMENT CONTROL SPECIALIST, demonstrating "rocking" motion to complete transfer. Patient tolerated approx 1 minute static stand each trial and remained in bedside chair with call light, tray table, cell phone. Will continue per POC as tolerted, total treatment time 14 minutes. Golden Ritchie, ELECTRONIC WARFARE OFFICER
[2020-05-10 12:00] VITALS: BP 118/49
--- NOTE | 2020-05-10 12:38 | NUR ---
OT NOTE Pt was seen this P.M> 1:1 for 18 minute OT session. Upon arrival pt was sitting upright in the recliner. Pt identified by name and and had complaints of 8/10 RUE pain. Pt presented with min edema to R hand compared to L hand. Completed pumping exercises for 2 X 10 and retrograde massage. Challenged pt's sitting balance while weight shifting, crossing midline, and reaching over all planes. Pt was able to maintain G sitting balance throughout. Pt was left sitting upright in the recliner with call light in hand, RUE elevated, and iCCU nurse notified. Continue with POC as able. RENE Puckett/Greer
--- NOTE | 2020-05-10 13:26 | NUR ---
PHYSICAL THERAPY TREATMENT TIME: OUT 1326 15 MINUTES TOTAL Patient presented to therapy in sitting in bedside chair with LEs in low position and 5 liters of spO2 VIA NASAL CANULA in ICCU- 4. Patient was identified by name and and on wristband. Informed consent given. Patient has telemetry lines attached to patient. Patient has no complaints. Patient performed STS from bedside chair with MIN A X 1. Patient completed SPT to to sitting on EOB with CGA. Patient completed sitting EOB > supine transfer with MIN A x 1 to move patients LEs up into bed. Patient did complete antonette LE ther ex IN SITTING EOB PRIOR TO TRANSFERRING TO SUPINE IN BED. Patient performed sitting LAQs, marches and heel/toe raises 2 x 10 reps each for strengthening. Patient was left in supine in bed with head of bed elevated, call light within reach and bed alarm on. Patient was 1:1 with this TIRE FABRIC IMPREGNATING RANGE TENDER for 15 minutes total. JF BANDA TIRE FABRIC IMPREGNATING RANGE TENDER
--- NOTE | 2020-05-10 14:27 | NUR ---
PT TRANSFERED OUT OF ICCU AND IN TO 424 AT THIS TIME.
[2020-05-10 16:00] VITALS: BP 111/57
--- NOTE | 2020-05-10 16:00 | NUR ---
Patient resting quietly with no c/o discomfort. Respirations easy and regular. Vital signs stable. No overt distress. MATEUSZ KHAN
[2020-05-10 20:00] VITALS: BP 120/57
--- NOTE | 2020-05-10 22:20 | NUR ---
Patient requested a sleeping pill. and refused to wear bipap. Patient given restoril. Will monitor and reassess.
--- NOTE | 2020-05-10 23:43 | NUR ---
Patient resting, no signs of distress. Restoril effective.
[2020-05-11] VITALS: BP 122/64
--- NOTE | 2020-05-11 02:27 | NUR ---
24 HR chart check completed.
[2020-05-11 06:24] LABS: HEMATOCRIT 38.7 % (42.0-52.0); MEAN CELL VOLUME 86.2 fl (80.0-94.0); MEAN CORPUSCULAR HGB 25.4 pg (27.0-31.0); MEAN CORPUSCULAR HGB CONC 29.5 g/dl (33.0-37.0); PLATELET COUNT AUTOMATED 349 10*3/uL (130-400); RED BLOOD COUNT 4.49 10*6/uL (4.50-5.90); RED CELL DISTRI WIDTH 16.8 % (0-14.5); WHITE BLOOD COUNT 14.6 10*3/uL (4.8-10.8)
[2020-05-11 06:49] LABS: CREATININE 2.98 mg/dL (0.70-1.30); POTASSIUM 3.6 mmol/L (3.5-5.1)
[2020-05-11 07:24] LABS: BASOPHILS 1 % (0-1); PLATELET SUFFICIENCY NORMAL (NORMAL); TOTAL CELLS COUNTED 100 #CELLS
--- NOTE | 2020-05-11 08:00 | NUR ---
OT NOTE Pt was seen this A.M. 1:1 for 15 minute OT session. Upon arrival pt was supine in bed. Pt identified by name and and had no complaints at this time. Pt presented to therapy with continuous 5L-O2 via NC which he remained on throughout the entire session. Pt transferred supine to sit EOB with Radha for assist with UB. While sitting EOB pt completed RUE pumping exercises 1 X 10 due to min edema in his RUE. Sit to stand completed from bed level with Radha and use of w/w for UE support. Standing pivot was then completed from the EOB to the bedside commode with CGA and use of w/w. Clothing management completed with CGA. Pt was left sitting upright on the bedside commode with call light in hand and under patient aide supervision. Continue with POC as able. RENE Puckett/Greer
--- NOTE | 2020-05-11 08:00 | NUR ---
Patient resting quietly with no c/o discomfort. Respirations easy and regular. Vital signs stable. No overt distress. MATEUSZ KHAN
--- NOTE | 2020-05-11 08:05 | NUR ---
24 HR chart check completed.
--- NOTE | 2020-05-11 08:15 | NUR ---
PHYSICAL THERAPY Patient seen this am 1;1 for therapy visit and was supine in bed upon therapist arrival. Patient identified by name / and presents with continuos O2-5L via NC, voicing no new c/o's at this time. Patient transfers supine to sit EOB, MIN A, while tolerating a minute or so of static EOB sit to fully awaken. Patient also presents with increased B LE edema, completing several sit to stand transfers, use of wh walker standing support, tolerating approx 1 minute each trial static stand. Patient requested use of BSC and performed SPT, wh walker, CGA to BSC, demonstrating very slow, cautious step sequence. Patient stated he still feels a little weak since coming out of ICCU the other day and is still a little afraid for fear of falling. Patient remained on BSC with call light and instructions to call patient attendant for personal care before returning to supine in bed. Will continue per POC as tolerated, total treatment time 14 minutes. Golden Ritchie, HEAVY EQUIPMENT RENTAL ASSOCIATE
--- NOTE | 2020-05-11 10:13 | NUR ---
CONSULTED DR. SINGH'S OFFICE. SPOKE WITH ANSWERING SERVICE REGARDING THE PATIENT'S CONDITION.
[2020-05-11 11:00] LABS: URINE CREATININE RANDOM 70.1 mg/dL
[2020-05-11 12:00] VITALS: BP 118/63
--- NOTE | 2020-05-11 12:00 | NUR ---
Patient resting quietly with no c/o discomfort. Respirations easy and regular. Vital signs stable. No overt distress. MATEUSZ KHAN
--- NOTE | 2020-05-11 12:10 | NUR ---
WAITING ON ACCEPTANCE TO [facility]. WILL CONTINUE TO FOLLOW.
[2020-05-11 13:15] LABS: CHLORIDE 97 mmol/L (98-107); POTASSIUM 3.6 mmol/L (3.5-5.1); SODIUM 137 mmol/L (136-145)
[2020-05-11 13:23] LABS: BUN 12 mg/dl (7-24); CREATININE 0.73 mg/dL (0.70-1.30)
[2020-05-11 16:00] VITALS: BP 104/61
--- NOTE | 2020-05-11 17:00 | NUR ---
Patient resting quietly with no c/o discomfort. Respirations easy and regular. Vital signs stable. No overt distress. SAM BRAGA
[2020-05-11 20:00] VITALS: BP 132/58
--- NOTE | 2020-05-11 22:48 | NUR ---
PATIENT REFUSES BIPAP BURRENTLY ON 5 L NC SPO2 93%.
[2020-05-12] VITALS: BP 128/59
--- NOTE | 2020-05-12 03:30 | NUR ---
PATIENT SLEEPING. NO SIGNS OF DISTRESS. RESPIRATIONS EASY. NON LABORED. WILL CONTINUE TO MONITOR.
[2020-05-12 07:20] LABS: MEAN CELL VOLUME 87.2 fl (80.0-94.0); MEAN CORPUSCULAR HGB 25.3 pg (27.0-31.0); MEAN PLATELET VOLUME 10.3 fl (9.6-12.3); PLATELET COUNT AUTOMATED 399 10*3/uL (130-400); RED BLOOD COUNT 4.47 10*6/uL (4.50-5.90); RED CELL DISTRI WIDTH 17.2 % (0-14.5); WHITE BLOOD COUNT 14.7 10*3/uL (4.8-10.8)
[2020-05-12 07:43] LABS: BASOPHILS 1 % (0-1); TOTAL CELLS COUNTED 100 #CELLS
[2020-05-12 07:47] LABS: PLATELET SUFFICIENCY NORMAL (NORMAL); POLYCHROMASIA SLIGHT
[2020-05-12 07:48] LABS: OVALOCYTES FEW
[2020-05-12 07:49] LABS: BUN 11 mg/dl (7-24); CHLORIDE 98 mmol/L (98-107); CREATININE 0.57 mg/dL (0.70-1.30); POTASSIUM 3.6 mmol/L (3.5-5.1); SODIUM 138 mmol/L (136-145)
[2020-05-12 08:00] VITALS: BP 118/66
--- NOTE | 2020-05-12 08:14 | NUR ---
Patient accepted to [facility], precert was started on 05/10; still waiting for auth. Updated clinicals and therapy notes faxed to [facility].
--- NOTE | 2020-05-12 08:15 | NUR ---
PT RESTING IN BED. RESP-EASY AND REGULAR. OXYGEN IN USE. NO C/O AT THIS TIME. UNABOOTS ON BILATERAL LEGS. HEEL PROTECTORS ON. CALL LIGHT IN REACH. SEE SHIFT ASSESSMENT.
--- NOTE | 2020-05-12 08:27 | NUR ---
Faxed updated clinicals/therapy notes and covid results to Maeve at [facility]. Notified her that as of 5:30 this morning, patient was down from 5 liters of oxygen to 2 liters of oxygen and has not been using the bipap for several days. She states she will review and possibly accept patient to [facility].
--- NOTE | 2020-05-12 08:41 | NUR ---
Patient accepted to [facility], precert started. Waiting for auth
--- NOTE | 2020-05-12 09:55 | NUR ---
PHYSICAL THERAPY Patient seen this am 1;1 for therapy visit and was resting supine in bed upon therapist arrival. Patient identified by name / and reports increased c/o of B foot pain secondary to Podiatry procedure early this morning. Patient did not feel up to doing any standing activities because of pain, however agreed to and performed supine B LE therex, all planes, 2 x 10 reps each to increased LE strength / ROM. Patient demonstrated increased difficulty during SLR x 2 secondary to increased muscle weakness and remained in bed with call light, tray table, cell phone and bed alarm for safety. Will continue per POC as tolerated, total treatment time 13 minutes. Golden Ritchie, RARE/ENDANGERED SPECIES SPECIALIST
--- NOTE | 2020-05-12 11:29 | NUR ---
Patient is back on 5 liters high flow oxygen; therefore precert has been stopped for [facility] until patient can maintain oxygen use under 5 liters.
--- NOTE | 2020-05-12 11:30 | NUR ---
OT NOTE PATIENT SEEN 1:1 OT THIS DATE. PATIENT IDENTIFIED BY NAME AND DATE OF . PATIENT COMPLETED 15 MINUTES OT. PATIENT COMPLETED IN SUPINE ACTIVITIY. COMPLETED RUE AROM/ EDEMA MANAGEMENT ALL PLANES X 20 REPS WITH EDUCATION ELEVATING RUE UE USE PILLOWS. PATIENT REPORTS SORENESS TO THE TOUCH FOREARM AND HAND. PATIENT IN BED WITH CALL LIGHT WITHIN REACH. CONTINUE TOWARDS PLAN OF CARE. ОЛЕГ LÓPEZ/Greer
[2020-05-12 12:00] VITALS: BP 115/51
--- NOTE | 2020-05-12 13:18 | NUR ---
Patient referral faxed to [facility] where Dr. Chino will be able to treat and they will accept patients up to 10 liters of oxygen. Waiting on review/acceptance.
--- NOTE | 2020-05-12 13:59 | NUR ---
[facility] patient however they need to order a bipap and a large bed to accomodate this patient. They will need a new bipap order for HS/PRN nurse notified. This also requires a precert that has been started.
[2020-05-12 16:00] VITALS: BP 120/59
[2020-05-12 20:00] VITALS: BP 124/53
[2020-05-13] VITALS: BP 107/91
--- NOTE | 2020-05-13 05:10 | NUR ---
24 HR chart check completed.
[2020-05-13 08:00] VITALS: BP 139/80
--- NOTE | 2020-05-13 08:20 | NUR ---
PHYSICAL THERAPY Patient seen this am 1;1 for therapy visit and was supine in bed upon therapist arrival. Patient identified by name / and reports c/o of 9/10 R hand pain, while presenting with increased edema / decreased ROM. Patient transfers supine to sit EOB with MIN A x 1, tolerating a minute or so of static EOB sit to collect himself. Patient performed sit to stand transfer from slightly elevated bed height, use of wh walker standing support, CGA, tolerating approx 5 minutes static stand. Patient returned to supine in bed and reviewed supine B LE therex, remaining in bed with call light, tray table, telephone, bed alarm for safety. Patient also remained with B heel protectors and will continue per POC as tolerated, total treatment time 13 minutes. Golden Ritchie, COMMUNITY HEALTH ADVOCATE
--- NOTE | 2020-05-13 08:30 | NUR ---
OT NOTE Pt was seen this A.M. 1:1 for 15 minute OT session. Upon arrival pt was supine in bed. Pt identified by name and and had complaints of 9/10 R hand pain. Pt presented to therapy with continuous 5L-O2 via NC which he remained on throughout the entire session. Pt transferred supine to sit EOB with Radha for assist with upper body. Sit to stand completed from bed level with CGA and use of w/w for UE support. Challenged pt's static standing tolerance needed for increased I in self care tasks and functional transfers. Pt was able to tolerate aprox 5 minutes before sitting due to fatigue. Functional mobility completed from the EOB to the bedside commode and back with CGA. Pt transferred back into bed sit to supine with SBA. There he was left with call light in hand, tray table in place, and bed alarm activated for safety. Continue with POC as able. RENE Puckett/Greer
--- NOTE | 2020-05-13 09:41 | NUR ---
New bipap orders and updated clinicals/therapy faxed to [facility]. They ordered a bipap and a large bed for patient. Precert started yesterday 05/12/2020
[2020-05-13 12:00] VITALS: BP 107/59
--- NOTE | 2020-05-13 12:49 | NUR ---
[facility] stating [facility] have large bed and bipap ready for patient, he is ok to go today if medically stable for discharge.
[2020-05-13] MEDS ORDERED: CEFAZOLIN2 GM/100 M IV (13:13)
[2020-05-13] MEDS ORDERED: KLOR-CON M2020 ME1 PO (13:13)
[2020-05-13] MEDS ORDERED: LOPRESSOR25 MG PO (13:13)
[2020-05-13] MEDS ORDERED: ELIQUIS5 M1 PO (13:13)
--- NOTE | 2020-05-13 14:11 | NUR ---
D/C PHOTOS NOT TAKEN, PT HAS MOOSE BOOTS TO THE BLE, REMOVED OPTIFOAM FROM SUPPOSED WOUND ON BACK. SKIN COMPLETLEY HEALED.
--- NOTE | 2020-05-13 15:57 | NUR ---
NURSE TO NURSE GIVEN TO ODELL PULIDO
--- NOTE | 2020-05-13 15:58 | NUR ---
[facility] Discharge instructions reviewed with patient/family. Patient receptive and verbalizes understanding. Follow-up care arranged. Written instructions given to patient/family. WALDEMAR BECKWITH
--- NOTE | 2020-05-16 09:00 | NUR ---
PHYSICAL THERAPY CO-SIGN I approve of the Phyical Therapy notes written above. Erin Nicholson PT
[2020-06-13 15:06] LABS: ACID FAST CULTURE Negative (.)
[2020-06-13 15:06] LABS: ACID FAST CULTURE Negative (.)
== END 2020-05-13 15:18 | disposition other institution (70) | DRG 720 ==
LOC: ED 15:29 → ICCU 17:39 → EDHOLD 17:39 → 5E 17:39 → ICCU 04-27 09:50 → 4E 05-10 14:09
PROVIDERS: Family Medicine; Internal Medicine; Internal Medicine Critical Care Medicine; Nurse Practitioner Family; Social Worker Clinical; Student in an Organized Health Care Education/Training Program; ADMIT Internal Medicine; ATTEND Internal Medicine
PROC: 5A09357 Assistance with Respiratory Ventilation, Less than 24 Consecutive Hours, Continuous Positive Airway Pressure (ICD-10-PCS; 2020-04-26)
PROC: 0BH17EZ Insertion of Endotracheal Airway into Trachea, Via Natural or Artificial Opening (ICD-10-PCS; 2020-04-27)
PROC: 5A1955Z Respiratory Ventilation, Greater than 96 Consecutive Hours (ICD-10-PCS; 2020-04-27)
PROC: 02HV33Z Insertion of Infusion Device into Superior Vena Cava, Percutaneous Approach (ICD-10-PCS; 2020-04-27)
PROC: B548ZZA Ultrasonography of Superior Vena Cava, Guidance (ICD-10-PCS; 2020-04-27)
PROC: 04HY32Z Insertion of Monitoring Device into Lower Artery, Percutaneous Approach (ICD-10-PCS; 2020-04-27)
PROC: 0BC18ZZ Extirpation of Matter from Trachea, Via Natural or Artificial Opening Endoscopic (ICD-10-PCS; 2020-04-28)
PROC: 0BC98ZZ Extirpation of Matter from Lingula Bronchus, Via Natural or Artificial Opening Endoscopic (ICD-10-PCS; 2020-04-28)
PROC: 0BC48ZZ Extirpation of Matter from Right Upper Lobe Bronchus, Via Natural or Artificial Opening Endoscopic (ICD-10-PCS; 2020-04-28)
PROC: 0BC88ZZ Extirpation of Matter from Left Upper Lobe Bronchus, Via Natural or Artificial Opening Endoscopic (ICD-10-PCS; 2020-04-28)
PROC: 0BC58ZZ Extirpation of Matter from Right Middle Lobe Bronchus, Via Natural or Artificial Opening Endoscopic (ICD-10-PCS; 2020-04-28)
PROC: 0BC38ZZ Extirpation of Matter from Right Main Bronchus, Via Natural or Artificial Opening Endoscopic (ICD-10-PCS; 2020-04-28)
PROC: 0BC78ZZ Extirpation of Matter from Left Main Bronchus, Via Natural or Artificial Opening Endoscopic (ICD-10-PCS; 2020-04-28)
PROC: 0BC68ZZ Extirpation of Matter from Right Lower Lobe Bronchus, Via Natural or Artificial Opening Endoscopic (ICD-10-PCS; 2020-04-28)
PROC: 0BCB8ZZ Extirpation of Matter from Left Lower Lobe Bronchus, Via Natural or Artificial Opening Endoscopic (ICD-10-PCS; 2020-04-28)
PROC: 0W9930Z Drainage of Right Pleural Cavity with Drainage Device, Percutaneous Approach (ICD-10-PCS; principal; 2020-04-29)
PROC: 5A09357 Assistance with Respiratory Ventilation, Less than 24 Consecutive Hours, Continuous Positive Airway Pressure (ICD-10-PCS; 2020-05-03)
PROC: 5A09357 Assistance with Respiratory Ventilation, Less than 24 Consecutive Hours, Continuous Positive Airway Pressure (ICD-10-PCS; 2020-05-04)
PROC: B24BZZ4 Ultrasonography of Heart with Aorta, Transesophageal (ICD-10-PCS; 2020-05-05)
PROC: 05HY33Z Insertion of Infusion Device into Upper Vein, Percutaneous Approach (ICD-10-PCS; 2020-05-06)
PROC: 5A09357 Assistance with Respiratory Ventilation, Less than 24 Consecutive Hours, Continuous Positive Airway Pressure (ICD-10-PCS; 2020-05-06)
PROC: 5A09357 Assistance with Respiratory Ventilation, Less than 24 Consecutive Hours, Continuous Positive Airway Pressure (ICD-10-PCS; 2020-05-08)
PROC: 5A09357 Assistance with Respiratory Ventilation, Less than 24 Consecutive Hours, Continuous Positive Airway Pressure (ICD-10-PCS; 2020-05-09)
DX: A41.9 Sepsis, unspecified organism (principal); J18.9 Pneumonia, unspecified organism; J44.1 Chronic obstructive pulmonary disease with (acute) exacerbation; E83.41 Hypermagnesemia; I21.4 Non-ST elevation (NSTEMI) myocardial infarction; I48.92 Unspecified atrial flutter; I11.0 Hypertensive heart disease with heart failure; E78.5 Hyperlipidemia, unspecified; J44.0 Chronic obstructive pulmonary disease with (acute) lower respiratory infection; T80.211A Bloodstream infection due to central venous catheter, initial encounter; E83.51 Hypocalcemia; J96.21 Acute and chronic respiratory failure with hypoxia; F32.9 Major depressive disorder, single episode, unspecified; E66.01 Morbid (severe) obesity due to excess calories; J96.22 Acute and chronic respiratory failure with hypercapnia; I48.91 Unspecified atrial fibrillation; G47.33 Obstructive sleep apnea (adult) (pediatric); I27.81 Cor pulmonale (chronic); R65.21 Severe sepsis with septic shock; E03.9 Hypothyroidism, unspecified; E87.6 Hypokalemia; T50.2X5A Adverse effect of carbonic-anhydrase inhibitors, benzothiadiazides and other diuretics, initial encounter; T38.0X5A Adverse effect of glucocorticoids and synthetic analogues, initial encounter; I50.43 Acute on chronic combined systolic (congestive) and diastolic (congestive) heart failure; E11.65 Type 2 diabetes mellitus with hyperglycemia; D72.829 Elevated white blood cell count, unspecified; I49.8 Other specified cardiac arrhythmias; I31.3 Pericardial effusion (noninflammatory); Y92.238 Other place in hospital as the place of occurrence of the external cause; S90.111A Contusion of right great toe without damage to nail, initial encounter; I34.0 Nonrheumatic mitral (valve) insufficiency; L03.113 Cellulitis of right upper limb; E87.4 Mixed disorder of acid-base balance; X58.XXXA Exposure to other specified factors, initial encounter; T82.524A Displacement of infusion catheter, initial encounter; R23.8 Other skin changes; Z20.828 Contact with and (suspected) exposure to other viral communicable diseases; Y84.8 Other medical procedures as the cause of abnormal reaction of the patient, or of later complication, without mention of misadventure at the time of the procedure; Y92.89 Other specified places as the place of occurrence of the external cause; Y99.8 Other external cause status; Y93.89 Activity, other specified; Z99.81 Dependence on supplemental oxygen; I25.2 Old myocardial infarction; Z87.891 Personal history of nicotine dependence; Z83.3 Family history of diabetes mellitus; Z86.73 Personal history of transient ischemic attack (TIA), and cerebral infarction without residual deficits; Z79.899 Other long term (current) drug therapy; Z79.82 Long term (current) use of aspirin

== ENCOUNTER 2020-08-20 04:45 | Inpatient (IN) | payer OTHER ==
[~2020-08-20] VITALS: Ht 190.5 cm; Wt 134.3 kg
[2020-08-20] VITALS (7 sets, daily range): BP systolic 98–144; BP diastolic 50–75
[~2020-08-20 04:45] MED LIST changes: +AIRDUO DIGIHAL1 EACH INH; +CEFAZOLIN2 GM/100 M IV; +ELIQUIS5 M1 PO; +KLOR-CON M2020 ME1 PO; +PROVENTIL HFA6.7 GM INH
[2020-08-20 05:52] LABS: ALBUMIN 3.2 gm/dl (3.1-4.5); ALKALINE PHOSPHATASE 61 U/L (45-117); BUN 45 mg/dl (7-24); CHLORIDE 100 mmol/L (98-107); CPK 44 U/L (39-308); LDH 228 U/L (87-241); POTASSIUM 5.1 mmol/L (3.5-5.1); SGOT/AST 17 IU/L (3-35); SGPT/ALT 15 U/L (12-78); SODIUM 139 mmol/L (136-145); TOTAL PROTEIN 6.9 gm/dL (6.4-8.2)
[2020-08-20 05:55] LABS: TROPONIN I < 0.015 ng/ml (<0.045)
[2020-08-20 06:14] LABS: HEMATOCRIT 51.4 % (42.0-52.0); MEAN CELL VOLUME 75.6 fl (80.0-94.0); MEAN CORPUSCULAR HGB 19.6 pg (27.0-31.0); MEAN CORPUSCULAR HGB CONC 25.9 g/dl (33.0-37.0); MEAN PLATELET VOLUME 9.7 fl (9.6-12.3); NUCLEATED RED BLOOD CELL 0.1 10*3/uL (0.0-0.0); NUCLEATED RED BLOOD CELL 1.1 % (0.0-0.0); PLATELET COUNT AUTOMATED 401 10*3/uL (130-400); RED CELL DISTRI WIDTH 23.4 % (0-14.5); WHITE BLOOD COUNT 10.6 10*3/uL (4.8-10.8)
[2020-08-20 06:18] LABS: ABG BASE EXCESS 7.7 mmol/L (-2.0-2.0); ARTERIAL BLOOD GAS PH 7.22 (7.35-7.45)
[2020-08-20 06:24] LABS: INTERNATIONAL NORM RATIO 1.1 (2.0-3.5)
[2020-08-20 06:52] LABS: BASOPHILS 2 % (0-1); PLATELET SUFFICIENCY HIGH (NORMAL); TOTAL CELLS COUNTED 100 #CELLS
[2020-08-20 06:53] LABS: MICROCYTOSIS SLIGHT; OVALOCYTES FEW; STOMATOCYTE FEW
[2020-08-20 08:49] LABS: ARTERIAL BLOOD GAS PH 7.23 (7.35-7.45)
[2020-08-20 09:22] LABS: BILIRUBIN Negative (Negative); BLOOD 2+ (Negative); CLARITY Clear (Clear); COLOR Yellow (Yellow); GLUCOSE Negative (Negative); KETONE Negative (Negative); LEUKO ESTERASE Negative (Negative); NITRITE Negative (Negative); SPECIFIC GRAVITY 1.015 (1.001-1.030)
[2020-08-20 09:35] LABS: BACTERIA 2+; CALCIUM OXALATE CRYSTALS 1+; RBC 21-30 rbc/hpf (0-2)
[2020-08-20] MEDS ORDERED: Lopressor25 MG PO (11:02)
[2020-08-20] MEDS ORDERED: POTASSIUM CHLO10 ME4 PO (11:03)
[2020-08-20] MEDS ORDERED: NORVASC10 MG PO (11:04)
[2020-08-20 11:34] LABS: ABG BASE EXCESS 7.4 mmol/L (-2.0-2.0); ARTERIAL BLOOD GAS PH 7.208 (7.35-7.45)
[2020-08-20 16:08] LABS: ABG BASE EXCESS 9.4 mmol/L (-2.0-2.0); ARTERIAL BLOOD GAS PH 7.35 (7.35-7.45)
[2020-08-21] VITALS (12 sets, daily range): BP systolic 88–144; BP diastolic 53–70
[2020-08-21 06:09] LABS: ALBUMIN 2.7 gm/dl (3.1-4.5); BUN 40 mg/dl (7-24); CHLORIDE 98 mmol/L (98-107); POTASSIUM 4.7 mmol/L (3.5-5.1); SODIUM 139 mmol/L (136-145)
[2020-08-21 06:15] LABS: ALKALINE PHOSPHATASE 50 U/L (45-117); CPK 42 U/L (39-308); CREATININE 1.44 mg/dL (0.70-1.30); LDH 283 U/L (87-241); SGOT/AST 21 IU/L (3-35); SGPT/ALT 12 U/L (12-78); TOTAL PROTEIN 5.8 gm/dL (6.4-8.2)
[2020-08-21 06:29] LABS: HEMATOCRIT 47.5 % (42.0-52.0); MEAN CORPUSCULAR HGB 19.8 pg (27.0-31.0); MEAN CORPUSCULAR HGB CONC 27.8 g/dl (33.0-37.0); MEAN PLATELET VOLUME 10.1 fl (9.6-12.3); NUCLEATED RED BLOOD CELL 0.2 10*3/uL (0.0-0.0); PLATELET COUNT AUTOMATED 324 10*3/uL (130-400); RED BLOOD COUNT 6.66 10*6/uL (4.50-5.90); RED CELL DISTRI WIDTH 23.5 % (0-14.5); WHITE BLOOD COUNT 7.6 10*3/uL (4.8-10.8)
[2020-08-21 06:35] LABS: MEAN CELL VOLUME 71.3 fl (80.0-94.0)
[2020-08-21 07:40] LABS: ATYPICAL LYMPHS 2 % (0-0); BASOPHILS 5 % (0-1); TOTAL CELLS COUNTED 100 #CELLS
[2020-08-21 07:41] LABS: MICROCYTOSIS SLIGHT; PLATELET SUFFICIENCY NORMAL (NORMAL); POLYCHROMASIA SLIGHT
[2020-08-21 07:42] LABS: BURR CELLS FEW; OVALOCYTES FEW
[2020-08-21 08:39] LABS: ABG BASE EXCESS 12.8 mmol/L (-2.0-2.0); ARTERIAL BLOOD GAS PH 7.522 (7.35-7.45)
[2020-08-21 16:06] LABS: ABG BASE EXCESS 13.3 mmol/L (-2.0-2.0); ARTERIAL BLOOD GAS PH 7.41 (7.35-7.45)
[2020-08-22] VITALS (12 sets, daily range): BP systolic 91–110; BP diastolic 41–61
[2020-08-22 06:06] LABS: ALBUMIN 2.6 gm/dl (3.1-4.5); CREATININE 1.46 mg/dL (0.70-1.30); POTASSIUM 4.2 mmol/L (3.5-5.1); TOTAL PROTEIN 5.7 gm/dL (6.4-8.2)
[2020-08-22 06:42] LABS: BASO # 0.1 10*3/uL (0.0-0.1); BASO % 0.9 % (0.0-1.0); HEMATOCRIT 46.8 % (42.0-52.0); LYMPH # 1.9 10*3/uL (1.3-4.4); MEAN CELL VOLUME 72.1 fl (80.0-94.0); MEAN CORPUSCULAR HGB 19.6 pg (27.0-31.0); MEAN CORPUSCULAR HGB CONC 27.1 g/dl (33.0-37.0); MEAN PLATELET VOLUME 10.2 fl (9.6-12.3); NEUT % 66.5 % (47.0-73.0); NUCLEATED RED BLOOD CELL 0.1 10*3/uL (0.0-0.0); NUCLEATED RED BLOOD CELL 0.9 % (0.0-0.0); PLATELET COUNT AUTOMATED 359 10*3/uL (130-400); RED BLOOD COUNT 6.49 10*6/uL (4.50-5.90); RED CELL DISTRI WIDTH 23.5 % (0-14.5); WHITE BLOOD COUNT 8.9 10*3/uL (4.8-10.8)
[2020-08-22 07:38] LABS: ABG BASE EXCESS 13.6 mmol/L (-2.0-2.0); ARTERIAL BLOOD GAS PH 7.392 (7.35-7.45)
[2020-08-22 13:08] LABS: ABG BASE EXCESS 12.2 mmol/L (-2.0-2.0); ARTERIAL BLOOD GAS PH 7.361 (7.35-7.45)
[2020-08-22 15:46] LABS: ABG BASE EXCESS 13.1 mmol/L (-2.0-2.0); ARTERIAL BLOOD GAS PH 7.373 (7.35-7.45)
[2020-08-23] VITALS (12 sets, daily range): BP systolic 101–116; BP diastolic 50–58
[2020-08-23 06:59] LABS: ALBUMIN 2.6 gm/dl (3.1-4.5); ALKALINE PHOSPHATASE 46 U/L (45-117); BUN 32 mg/dl (7-24); CHLORIDE 98 mmol/L (98-107); CREATININE 1.22 mg/dL (0.70-1.30); POTASSIUM 3.9 mmol/L (3.5-5.1); SGOT/AST 10 IU/L (3-35); SGPT/ALT 9 U/L (12-78); SODIUM 143 mmol/L (136-145); TOTAL PROTEIN 5.8 gm/dL (6.4-8.2)
[2020-08-23 07:20] LABS: BASO # 0.1 10*3/uL (0.0-0.1); BASO % 1.2 % (0.0-1.0); EOS # 0.1 10*3/uL (0.0-0.4); EOS % 1.6 % (1.0-4.0); HEMATOCRIT 46.3 % (42.0-52.0); LYMPH % 23.7 % (27.0-41.0); MEAN CELL VOLUME 72.6 fl (80.0-94.0); MEAN CORPUSCULAR HGB 19.6 pg (27.0-31.0); MONO # 1.2 10*3/uL (0.1-1.0); MONO % 13.4 % (3.0-9.0); NEUT # 5.1 10*3/uL (2.3-7.9); NEUT % 59.6 % (47.0-73.0); NUCLEATED RED BLOOD CELL 0.5 % (0.0-0.0); PLATELET COUNT AUTOMATED 282 10*3/uL (130-400); RED BLOOD COUNT 6.38 10*6/uL (4.50-5.90); RED CELL DISTRI WIDTH 23.5 % (0-14.5); WHITE BLOOD COUNT 8.6 10*3/uL (4.8-10.8)
[2020-08-23 07:23] LABS: ABG BASE EXCESS 13.5 mmol/L (-2.0-2.0); ARTERIAL BLOOD GAS PH 7.395 (7.35-7.45)
[2020-08-23 15:19] LABS: ABG BASE EXCESS 15.6 mmol/L (-2.0-2.0); ARTERIAL BLOOD GAS PH 7.428 (7.35-7.45)
[2020-08-24] VITALS (11 sets, daily range): BP systolic 111–131; BP diastolic 48–68
[2020-08-24 05:58] LABS: ALBUMIN 2.5 gm/dl (3.1-4.5); ALKALINE PHOSPHATASE 42 U/L (45-117); BUN 27 mg/dl (7-24); CHLORIDE 97 mmol/L (98-107); CREATININE 1.09 mg/dL (0.70-1.30); POTASSIUM 3.4 mmol/L (3.5-5.1); SGOT/AST 10 IU/L (3-35); SGPT/ALT 9 U/L (12-78); SODIUM 141 mmol/L (136-145); TOTAL PROTEIN 5.6 gm/dL (6.4-8.2)
[2020-08-24 06:23] LABS: BASO # 0.1 10*3/uL (0.0-0.1); BASO % 1.2 % (0.0-1.0); EOS # 0.1 10*3/uL (0.0-0.4); EOS % 1.4 % (1.0-4.0); HEMATOCRIT 47.6 % (42.0-52.0); LYMPH # 2.5 10*3/uL (1.3-4.4); LYMPH % 25.6 % (27.0-41.0); MEAN CELL VOLUME 73.5 fl (80.0-94.0); MEAN CORPUSCULAR HGB 19.4 pg (27.0-31.0); MEAN CORPUSCULAR HGB CONC 26.5 g/dl (33.0-37.0); MEAN PLATELET VOLUME 10.5 fl (9.6-12.3); MONO # 1.4 10*3/uL (0.1-1.0); MONO % 13.7 % (3.0-9.0); NEUT # 5.7 10*3/uL (2.3-7.9); NEUT % 57.6 % (47.0-73.0); NUCLEATED RED BLOOD CELL 0.2 % (0.0-0.0); PLATELET COUNT AUTOMATED 248 10*3/uL (130-400); RED BLOOD COUNT 6.48 10*6/uL (4.50-5.90); RED CELL DISTRI WIDTH 23.7 % (0-14.5); WHITE BLOOD COUNT 9.9 10*3/uL (4.8-10.8)
[2020-08-24 09:02] LABS: ABG BASE EXCESS 15.1 mmol/L (-2.0-2.0); ARTERIAL BLOOD GAS PH 7.417 (7.35-7.45)
[2020-08-24 13:25] LABS: ABG BASE EXCESS 12.8 mmol/L (-2.0-2.0); ARTERIAL BLOOD GAS PH 7.41 (7.35-7.45)
[2020-08-24 16:14] LABS: ARTERIAL BLOOD GAS PH 7.361 (7.35-7.45)
[2020-08-24 19:37] LABS: ABG BASE EXCESS 12.6 mmol/L (-2.0-2.0); ARTERIAL BLOOD GAS PH 7.388 (7.35-7.45)
[2020-08-25] VITALS: BP 100/48
[2020-08-25 04:00] VITALS: BP 105/52
[2020-08-25 05:10] LABS: ALBUMIN 2.7 gm/dl (3.1-4.5); ALKALINE PHOSPHATASE 42 U/L (45-117); BUN 24 mg/dl (7-24); CHLORIDE 100 mmol/L (98-107); CREATININE 1.04 mg/dL (0.70-1.30); POTASSIUM 3.7 mmol/L (3.5-5.1); SGOT/AST 16 IU/L (3-35); SGPT/ALT 14 U/L (12-78); SODIUM 142 mmol/L (136-145); TOTAL PROTEIN 6.1 gm/dL (6.4-8.2)
[2020-08-25 06:10] LABS: HEMATOCRIT 47.4 % (42.0-52.0); MEAN CELL VOLUME 72.9 fl (80.0-94.0); MEAN CORPUSCULAR HGB 19.4 pg (27.0-31.0); MEAN CORPUSCULAR HGB CONC 26.6 g/dl (33.0-37.0); PLATELET COUNT AUTOMATED 228 10*3/uL (130-400); RED CELL DISTRI WIDTH 23.7 % (0-14.5); WHITE BLOOD COUNT 10.2 10*3/uL (4.8-10.8)
[2020-08-25 06:53] LABS: BASOPHILS 2 % (0-1); TOTAL CELLS COUNTED 100 #CELLS
[2020-08-25 06:54] LABS: OVALOCYTES FEW; PLATELET SUFFICIENCY NORMAL (NORMAL); TARGET CELLS FEW
[2020-08-25 06:55] LABS: MICROCYTOSIS SLIGHT; POLYCHROMASIA SLIGHT; STOMATOCYTE FEW
[2020-08-25 07:44] LABS: ABG BASE EXCESS 10.7 mmol/L (-2.0-2.0); ARTERIAL BLOOD GAS PH 7.372 (7.35-7.45)
[2020-08-25 08:00] VITALS: BP 134/74
[2020-08-25 12:00] VITALS: BP 110/70
[2020-08-25 16:00] VITALS: BP 110/56
[2020-08-25 20:00] VITALS: BP 115/54
[2020-08-26] VITALS: BP 102/54
[2020-08-26 06:17] LABS: ALBUMIN 2.7 gm/dl (3.1-4.5); ALKALINE PHOSPHATASE 46 U/L (45-117); BUN 21 mg/dl (7-24); CHLORIDE 101 mmol/L (98-107); CREATININE 0.93 mg/dL (0.70-1.30); POTASSIUM 3.3 mmol/L (3.5-5.1); SGOT/AST 8 IU/L (3-35); SGPT/ALT 11 U/L (12-78); SODIUM 140 mmol/L (136-145); TOTAL PROTEIN 6.2 gm/dL (6.4-8.2)
[2020-08-26 07:12] LABS: BASO # 0.1 10*3/uL (0.0-0.1); EOS # 0.2 10*3/uL (0.0-0.4); EOS % 1.6 % (1.0-4.0); HEMATOCRIT 48.1 % (42.0-52.0); LYMPH # 2.8 10*3/uL (1.3-4.4); LYMPH % 24.3 % (27.0-41.0); MEAN CELL VOLUME 75.5 fl (80.0-94.0); MEAN CORPUSCULAR HGB 19.9 pg (27.0-31.0); MEAN CORPUSCULAR HGB CONC 26.4 g/dl (33.0-37.0); MONO # 1.5 10*3/uL (0.1-1.0); MONO % 13.1 % (3.0-9.0); NEUT # 6.9 10*3/uL (2.3-7.9); NEUT % 59.7 % (47.0-73.0); PLATELET COUNT AUTOMATED 208 10*3/uL (130-400); RED BLOOD COUNT 6.37 10*6/uL (4.50-5.90); RED CELL DISTRI WIDTH 23.6 % (0-14.5); WHITE BLOOD COUNT 11.5 10*3/uL (4.8-10.8)
[2020-08-26 08:00] VITALS: BP 112/58
[2020-08-26 12:00] VITALS: BP 105/51; BP 86/48
[2020-08-26 16:00] VITALS: BP 120/65
[2020-08-26 20:00] VITALS: BP 112/64
[2020-08-27] VITALS: BP 98/48
[2020-08-27 07:02] LABS: BASO # 0.2 10*3/uL (0.0-0.1); BASO % 1.5 % (0.0-1.0); EOS # 0.2 10*3/uL (0.0-0.4); EOS % 2.2 % (1.0-4.0); LYMPH # 2.8 10*3/uL (1.3-4.4); LYMPH % 25.4 % (27.0-41.0); MEAN CELL VOLUME 75.8 fl (80.0-94.0); MEAN CORPUSCULAR HGB CONC 26.4 g/dl (33.0-37.0); MONO # 1.2 10*3/uL (0.1-1.0); MONO % 11.3 % (3.0-9.0); NEUT # 6.5 10*3/uL (2.3-7.9); NEUT % 59.2 % (47.0-73.0); PLATELET COUNT AUTOMATED 214 10*3/uL (130-400); RED BLOOD COUNT 6.99 10*6/uL (4.50-5.90); RED CELL DISTRI WIDTH 23.9 % (0-14.5); WHITE BLOOD COUNT 10.9 10*3/uL (4.8-10.8)
[2020-08-27 07:30] LABS: CHLORIDE 100 mmol/L (98-107); POTASSIUM 3.3 mmol/L (3.5-5.1); SODIUM 139 mmol/L (136-145)
[2020-08-27 07:33] LABS: BUN 18 mg/dl (7-24)
[2020-08-27 08:00] VITALS: BP 118/56
[2020-08-27 09:31] VITALS: BP 128/68
[2020-08-27 12:00] VITALS: BP 121/68
[2020-08-27 16:00] VITALS: BP 121/56
[2020-08-27 20:00] VITALS: BP 123/69
[2020-08-28] VITALS: BP 111/59
[2020-08-28 07:01] LABS: HEMATOCRIT 48.8 % (42.0-52.0); MEAN CELL VOLUME 76.4 fl (80.0-94.0); MEAN CORPUSCULAR HGB 19.7 pg (27.0-31.0); MEAN CORPUSCULAR HGB CONC 25.8 g/dl (33.0-37.0); PLATELET COUNT AUTOMATED 207 10*3/uL (130-400); RED BLOOD COUNT 6.39 10*6/uL (4.50-5.90); RED CELL DISTRI WIDTH 23.8 % (0-14.5); WHITE BLOOD COUNT 10.6 10*3/uL (4.8-10.8)
[2020-08-28 07:52] LABS: BUN 14 mg/dl (7-24); CHLORIDE 104 mmol/L (98-107); CREATININE 0.79 mg/dL (0.70-1.30); POTASSIUM 3.2 mmol/L (3.5-5.1); SODIUM 143 mmol/L (136-145)
[2020-08-28 07:58] LABS: BASOPHILS 5 % (0-1); MICROCYTOSIS SLIGHT; PLATELET SUFFICIENCY NORMAL (NORMAL); TOTAL CELLS COUNTED 100 #CELLS
[2020-08-28 08:00] VITALS: BP 124/66
[2020-08-28 12:00] VITALS: BP 109/63
[2020-08-28 16:00] VITALS: BP 130/70
[2020-08-28 20:00] VITALS: BP 118/66
[2020-08-29] VITALS: BP 100/52
[2020-08-29 06:48] LABS: HEMATOCRIT 48.3 % (42.0-52.0); MEAN CELL VOLUME 75.7 fl (80.0-94.0); MEAN CORPUSCULAR HGB 20.1 pg (27.0-31.0); MEAN CORPUSCULAR HGB CONC 26.5 g/dl (33.0-37.0); PLATELET COUNT AUTOMATED 204 10*3/uL (130-400); RED BLOOD COUNT 6.38 10*6/uL (4.50-5.90); RED CELL DISTRI WIDTH 23.9 % (0-14.5); WHITE BLOOD COUNT 10.5 10*3/uL (4.8-10.8)
[2020-08-29 06:52] LABS: BUN 13 mg/dl (7-24); CHLORIDE 104 mmol/L (98-107); POTASSIUM 3.8 mmol/L (3.5-5.1); SODIUM 141 mmol/L (136-145)
[2020-08-29 07:57] LABS: BASOPHILS 1 % (0-1); TOTAL CELLS COUNTED 100 #CELLS
[2020-08-29 07:58] LABS: MICROCYTOSIS SLIGHT; OVALOCYTES FEW; PLATELET SUFFICIENCY NORMAL (NORMAL); TARGET CELLS FEW
[2020-08-29 08:00] VITALS: BP 127/60; BP 130/70
[2020-08-29 12:00] VITALS: BP 100/53
[2020-08-29 16:00] VITALS: BP 124/57
[2020-08-29 20:00] VITALS: BP 122/60
[2020-08-30] VITALS: BP 122/67
[2020-08-30 06:48] LABS: BASO # 0.2 10*3/uL (0.0-0.1); BASO % 1.8 % (0.0-1.0); EOS # 0.1 10*3/uL (0.0-0.4); EOS % 1.4 % (1.0-4.0); HEMATOCRIT 49.4 % (42.0-52.0); LYMPH # 2.5 10*3/uL (1.3-4.4); LYMPH % 25.6 % (27.0-41.0); MEAN CELL VOLUME 76.4 fl (80.0-94.0); MEAN CORPUSCULAR HGB 19.9 pg (27.0-31.0); MEAN CORPUSCULAR HGB CONC 26.1 g/dl (33.0-37.0); MEAN PLATELET VOLUME 10.3 fl (9.6-12.3); MONO # 1.4 10*3/uL (0.1-1.0); MONO % 14.5 % (3.0-9.0); NEUT # 5.6 10*3/uL (2.3-7.9); NEUT % 56.5 % (47.0-73.0); PLATELET COUNT AUTOMATED 207 10*3/uL (130-400); RED BLOOD COUNT 6.47 10*6/uL (4.50-5.90); RED CELL DISTRI WIDTH 24.3 % (0-14.5); WHITE BLOOD COUNT 9.9 10*3/uL (4.8-10.8)
[2020-08-30 07:27] LABS: CHLORIDE 103 mmol/L (98-107); POTASSIUM 3.4 mmol/L (3.5-5.1); SODIUM 141 mmol/L (136-145)
[2020-08-30 07:31] LABS: BUN 11 mg/dl (7-24)
[2020-08-30 08:00] VITALS: BP 126/64
[2020-08-30 12:00] VITALS: BP 105/54
[2020-08-30] MEDS ORDERED: POLY-IRON 150150 MG PO (12:46)
== END 2020-08-30 13:45 | disposition home health service (06) | DRG 130 ==
LOC: ED 04:45 → EDHOLD 06:30 → ICCU 06:30 → 5E 06:30 → ICCU 06:45 → 5E 08-25 18:30
PROVIDERS: Emergency Medicine; Hospitalist; Internal Medicine; Internal Medicine Critical Care Medicine; ADMIT Family Medicine; ATTEND Family Medicine
PROC: 02HV33Z Insertion of Infusion Device into Superior Vena Cava, Percutaneous Approach (ICD-10-PCS; principal; 2020-08-20)
PROC: B548ZZA Ultrasonography of Superior Vena Cava, Guidance (ICD-10-PCS; 2020-08-20)
PROC: 03HY32Z Insertion of Monitoring Device into Upper Artery, Percutaneous Approach (ICD-10-PCS; 2020-08-20)
PROC: 5A09357 Assistance with Respiratory Ventilation, Less than 24 Consecutive Hours, Continuous Positive Airway Pressure (ICD-10-PCS; 2020-08-20)
PROC: 5A1955Z Respiratory Ventilation, Greater than 96 Consecutive Hours (ICD-10-PCS; 2020-08-20)
PROC: 0BH17EZ Insertion of Endotracheal Airway into Trachea, Via Natural or Artificial Opening (ICD-10-PCS; 2020-08-20)
PROC: 5A09357 Assistance with Respiratory Ventilation, Less than 24 Consecutive Hours, Continuous Positive Airway Pressure (ICD-10-PCS; 2020-08-23)
PROC: 5A09357 Assistance with Respiratory Ventilation, Less than 24 Consecutive Hours, Continuous Positive Airway Pressure (ICD-10-PCS; 2020-08-24)
PROC: 5A09357 Assistance with Respiratory Ventilation, Less than 24 Consecutive Hours, Continuous Positive Airway Pressure (ICD-10-PCS; 2020-08-25)
PROC: 0HBRXZZ Excision of Toe Nail, External Approach (ICD-10-PCS; 2020-08-26)
PROC: 0HBRXZZ Excision of Toe Nail, External Approach (ICD-10-PCS; 2020-08-26)
PROC: 0HBRXZZ Excision of Toe Nail, External Approach (ICD-10-PCS; 2020-08-26)
PROC: 0HBRXZZ Excision of Toe Nail, External Approach (ICD-10-PCS; 2020-08-26)
PROC: 0HBRXZZ Excision of Toe Nail, External Approach (ICD-10-PCS; 2020-08-26)
PROC: 0HBRXZZ Excision of Toe Nail, External Approach (ICD-10-PCS; 2020-08-26)
PROC: 0HBRXZZ Excision of Toe Nail, External Approach (ICD-10-PCS; 2020-08-26)
PROC: 0HBRXZZ Excision of Toe Nail, External Approach (ICD-10-PCS; 2020-08-26)
PROC: 0HBRXZZ Excision of Toe Nail, External Approach (ICD-10-PCS; 2020-08-26)
DX: J69.0 Pneumonitis due to inhalation of food and vomit (principal); N17.0 Acute kidney failure with tubular necrosis; Z20.828 Contact with and (suspected) exposure to other viral communicable diseases; I50.23 Acute on chronic systolic (congestive) heart failure; J44.9 Chronic obstructive pulmonary disease, unspecified; Z20.822 Contact with and (suspected) exposure to COVID-19; E78.5 Hyperlipidemia, unspecified; E66.01 Morbid (severe) obesity due to excess calories; G47.33 Obstructive sleep apnea (adult) (pediatric); F32.9 Major depressive disorder, single episode, unspecified; I25.10 Atherosclerotic heart disease of native coronary artery without angina pectoris; E03.9 Hypothyroidism, unspecified; J96.22 Acute and chronic respiratory failure with hypercapnia; N18.30 Chronic kidney disease, stage 3 unspecified; E80.6 Other disorders of bilirubin metabolism; R31.9 Hematuria, unspecified; E87.3 Alkalosis; B35.1 Tinea unguium; R00.1 Bradycardia, unspecified; E83.39 Other disorders of phosphorus metabolism; E11.22 Type 2 diabetes mellitus with diabetic chronic kidney disease; D50.9 Iron deficiency anemia, unspecified; I13.0 Hypertensive heart and chronic kidney disease with heart failure and stage 1 through stage 4 chronic kidney disease, or unspecified chronic kidney disease; E87.6 Hypokalemia; I95.9 Hypotension, unspecified; S90.32XA Contusion of left foot, initial encounter; X58.XXXA Exposure to other specified factors, initial encounter; Y93.89 Activity, other specified; Y92.89 Other specified places as the place of occurrence of the external cause; Y99.8 Other external cause status; Z86.73 Personal history of transient ischemic attack (TIA), and cerebral infarction without residual deficits; I25.2 Old myocardial infarction; Z83.3 Family history of diabetes mellitus; Z68.41 Body mass index [BMI] 40.0-44.9, adult

== ENCOUNTER 2022-01-08 12:10 | Inpatient (IN) | payer MEDICAID ==
[~2022-01-08] VITALS: Ht 200.6 cm; Wt 150.1 kg
[2022-01-08] VITALS (21 sets, daily range): BP systolic 88–186; BP diastolic 50–159
[~2022-01-08 12:10] MED LIST changes: +CARDIZEM CD120 M2 PO; +Lopressor25 MG PO; +METOPROLOL TAR100 M1 PO; +POLY-IRON 150150 MG PO; +POTASSIUM CHLO10 ME4 PO
[2022-01-08 12:39] LABS: BASO # 0.1 10*3/uL (0.0-0.1); BASO % 1.6 % (0.0-1.0); EOS % 0.2 % (1.0-4.0); LYMPH # 1.8 10*3/uL (1.3-4.4); LYMPH % 21.2 % (27.0-41.0); MEAN CELL VOLUME 88.2 fl (80.0-94.0); MEAN CORPUSCULAR HGB 25.5 pg (27.0-31.0); MEAN CORPUSCULAR HGB CONC 28.9 g/dl (33.0-37.0); MEAN PLATELET VOLUME 10.7 fl (9.6-12.3); MONO % 11.9 % (3.0-9.0); NEUT # 5.6 10*3/uL (2.3-7.9); NEUT % 64.8 % (47.0-73.0); NUCLEATED RED BLOOD CELL 0.2 % (0.0-0.0); PLATELET COUNT AUTOMATED 141 10*3/uL (130-400); RED BLOOD COUNT 7.61 10*6/uL (4.50-5.90); RED CELL DISTRI WIDTH 20.5 % (0-14.5); WHITE BLOOD COUNT 8.6 10*3/uL (4.8-10.8)
[2022-01-08 12:41] LABS: HEMATOCRIT 67.1 % (42.0-52.0)
[2022-01-08 13:24] LABS: ACT PARTIAL THROMBO TIME 30.5 SECONDS (20.0-32.1); INTERNATIONAL NORM RATIO 1.3 (2.0-3.5)
[2022-01-08 14:06] LABS: ARTERIAL BLOOD GAS PO2 90.3 (80-90)
[2022-01-08 14:10] LABS: ABG BASE EXCESS 3.3 mmol/L (-2.0-2.0); ARTERIAL BLOOD GAS PH 7.251 (7.35-7.45)
[2022-01-08 14:58] LABS: CREATININE 1.97 mg/dL (0.70-1.30); TOTAL PROTEIN 6.9 gm/dL (6.4-8.2)
[2022-01-08 15:04] LABS: POTASSIUM 6.3 mmol/L (3.5-5.1)
[2022-01-08 19:18] LABS: ABG BASE EXCESS 6.7 mmol/L (-2.0-2.0); ARTERIAL BLOOD GAS PO2 81.2 (80-90)
[2022-01-08 19:20] LABS: ARTERIAL BLOOD GAS PH 7.149 (7.35-7.45)
[2022-01-09] VITALS (92 sets, daily range): BP systolic 76–126; BP diastolic 44–83
[2022-01-09 05:14] LABS: ALKALINE PHOSPHATASE 61 U/L (45-117); BUN 55 mg/dl (7-24); CHLORIDE 101 mmol/L (98-107); CREATININE 1.37 mg/dL (0.70-1.30); SGOT/AST 19 IU/L (3-35); SGPT/ALT 12 U/L (12-78); SODIUM 141 mmol/L (136-145); TOTAL PROTEIN 6.1 gm/dL (6.4-8.2)
[2022-01-09 05:16] LABS: POTASSIUM 4.3 mmol/L (3.5-5.1)
[2022-01-09 05:18] LABS: FREE T4 0.91 ng/dl (0.76-1.46)
[2022-01-09 06:04] LABS: MEAN CELL VOLUME 85.6 fl (80.0-94.0); MEAN CORPUSCULAR HGB 25.2 pg (27.0-31.0); MEAN CORPUSCULAR HGB CONC 29.4 g/dl (33.0-37.0); MEAN PLATELET VOLUME 10.9 fl (9.6-12.3); NUCLEATED RED BLOOD CELL 0.2 % (0.0-0.0); PLATELET COUNT AUTOMATED 115 10*3/uL (130-400); RED CELL DISTRI WIDTH 20.6 % (0-14.5); WHITE BLOOD COUNT 9.4 10*3/uL (4.8-10.8)
[2022-01-09 06:07] LABS: MANUAL DIFF REFLEX YES
[2022-01-09 06:08] LABS: HEMATOCRIT 64.2 % (42.0-52.0)
[2022-01-09 06:48] LABS: BASOPHILS 3 % (0-1); PLATELET SUFFICIENCY LOW (NORMAL); POLYCHROMASIA SLIGHT; TOTAL CELLS COUNTED 100 #CELLS
[2022-01-09 08:44] LABS: ARTERIAL BLOOD GAS PH 7.346 (7.35-7.45); ARTERIAL BLOOD GAS PO2 61.2 (80-90)
[2022-01-10] VITALS (95 sets, daily range): BP systolic 84–138; BP diastolic 42–94
[2022-01-10 05:31] LABS: CHLORIDE 104 mmol/L (98-107); CREATININE 1.37 mg/dL (0.70-1.30); POTASSIUM 4.9 mmol/L (3.5-5.1); SODIUM 140 mmol/L (136-145)
[2022-01-10 05:45] LABS: BUN 42 mg/dl (7-24)
[2022-01-10 06:25] LABS: MEAN CELL VOLUME 85.1 fl (80.0-94.0); MEAN CORPUSCULAR HGB 24.9 pg (27.0-31.0); MEAN CORPUSCULAR HGB CONC 29.3 g/dl (33.0-37.0); MEAN PLATELET VOLUME 10.9 fl (9.6-12.3); PLATELET COUNT AUTOMATED 122 10*3/uL (130-400); RED BLOOD COUNT 7.98 10*6/uL (4.50-5.90); RED CELL DISTRI WIDTH 20.9 % (0-14.5); WHITE BLOOD COUNT 11.7 10*3/uL (4.8-10.8)
[2022-01-10 06:28] LABS: MANUAL DIFF REFLEX YES
[2022-01-10 06:29] LABS: HEMATOCRIT 67.9 % (42.0-52.0)
[2022-01-10 07:10] LABS: BASOPHILS 2 % (0-1); PLATELET SUFFICIENCY LOW (NORMAL); POLYCHROMASIA SLIGHT; TOTAL CELLS COUNTED 100 #CELLS
[2022-01-10 07:57] LABS: ABG BASE EXCESS 3.9 mmol/L (-2.0-2.0); ARTERIAL BLOOD GAS PH 7.322 (7.35-7.45); ARTERIAL BLOOD GAS PO2 69.2 (80-90)
[2022-01-10 16:25] LABS: BILIRUBIN Negative (Negative); BLOOD 3+ (Negative); CLARITY Cloudy (Clear); COLOR Yellow (Yellow); GLUCOSE Negative (Negative); KETONE Negative (Negative); LEUKO ESTERASE Trace (Negative); NITRITE Negative (Negative)
[2022-01-10 16:32] LABS: BACTERIA 1+; RBC 16-20 rbc/hpf (0-2); URIC ACID CRYSTALS 3+
[2022-01-11] VITALS (96 sets, daily range): BP systolic 80–125; BP diastolic 37–89
[2022-01-11 05:22] LABS: ALKALINE PHOSPHATASE 54 U/L (45-117); CHLORIDE 107 mmol/L (98-107); POTASSIUM 4.2 mmol/L (3.5-5.1); SGOT/AST 17 IU/L (3-35); SGPT/ALT 10 U/L (12-78); SODIUM 144 mmol/L (136-145); TOTAL PROTEIN 6.4 gm/dL (6.4-8.2)
[2022-01-11 05:23] LABS: BUN 28 mg/dl (7-24)
[2022-01-11 06:35] LABS: MANUAL DIFF REFLEX YES; MEAN CELL VOLUME 86.3 fl (80.0-94.0); MEAN CORPUSCULAR HGB 25.2 pg (27.0-31.0); MEAN CORPUSCULAR HGB CONC 29.2 g/dl (33.0-37.0); MEAN PLATELET VOLUME 10.7 fl (9.6-12.3); PLATELET COUNT AUTOMATED 109 10*3/uL (130-400); RED BLOOD COUNT 7.67 10*6/uL (4.50-5.90); RED CELL DISTRI WIDTH 20.5 % (0-14.5); WHITE BLOOD COUNT 13.9 10*3/uL (4.8-10.8)
[2022-01-11 06:38] LABS: HEMATOCRIT 66.2 % (42.0-52.0)
[2022-01-11 07:00] LABS: BASOPHILS 2 % (0-1); BURR CELLS FEW; PLATELET SUFFICIENCY LOW (NORMAL); POLYCHROMASIA SLIGHT; TOTAL CELLS COUNTED 100 #CELLS
[2022-01-11 07:50] LABS: ABG BASE EXCESS 5.3 mmol/L (-2.0-2.0); ARTERIAL BLOOD GAS PH 7.268 (7.35-7.45); ARTERIAL BLOOD GAS PO2 67.4 (80-90)
[2022-01-11 11:24] LABS: ABG BASE EXCESS 4.2 mmol/L (-2.0-2.0); ARTERIAL BLOOD GAS PH 7.304 (7.35-7.45); ARTERIAL BLOOD GAS PO2 58.9 (80-90)
[2022-01-12] VITALS (75 sets, daily range): BP systolic 0–126; BP diastolic 16–736
[2022-01-12 05:04] LABS: CREATININE 1.53 mg/dL (0.70-1.30); POTASSIUM 4.7 mmol/L (3.5-5.1)
[2022-01-12 06:18] LABS: MEAN CELL VOLUME 86.9 fl (80.0-94.0); MEAN CORPUSCULAR HGB 24.7 pg (27.0-31.0); MEAN CORPUSCULAR HGB CONC 28.4 g/dl (33.0-37.0); PLATELET COUNT AUTOMATED 100 10*3/uL (130-400); RED BLOOD COUNT 8.03 10*6/uL (4.50-5.90); RED CELL DISTRI WIDTH 20.5 % (0-14.5); WHITE BLOOD COUNT 14.7 10*3/uL (4.8-10.8)
[2022-01-12 06:28] LABS: HEMATOCRIT 69.8 % (42.0-52.0); MANUAL DIFF REFLEX YES
[2022-01-12 07:17] LABS: PLATELET SUFFICIENCY LOW (NORMAL); TOTAL CELLS COUNTED 100 #CELLS
== END 2022-01-12 19:03 | disposition hospice, inpatient (51) | DRG 720 ==
LOC: ED 12:10 → ICCU 15:32 → EDHOLD 15:32 → ICCU 15:38
PROVIDERS: Emergency Medicine; Internal Medicine; Internal Medicine Critical Care Medicine; ADMIT Student in an Organized Health Care Education/Training Program; ATTEND Student in an Organized Health Care Education/Training Program
PROC: 5A09357 Assistance with Respiratory Ventilation, Less than 24 Consecutive Hours, Continuous Positive Airway Pressure (ICD-10-PCS; principal; 2022-01-08)
PROC: 0BH18EZ Insertion of Endotracheal Airway into Trachea, Via Natural or Artificial Opening Endoscopic (ICD-10-PCS; 2022-01-08)
PROC: 5A1945Z Respiratory Ventilation, 24-96 Consecutive Hours (ICD-10-PCS; 2022-01-08)
PROC: 02HV33Z Insertion of Infusion Device into Superior Vena Cava, Percutaneous Approach (ICD-10-PCS; 2022-01-09)
PROC: B548ZZA Ultrasonography of Superior Vena Cava, Guidance (ICD-10-PCS; 2022-01-09)
PROC: 0HBRXZZ Excision of Toe Nail, External Approach (ICD-10-PCS; 2022-01-09)
PROC: 0HBRXZZ Excision of Toe Nail, External Approach (ICD-10-PCS; 2022-01-09)
PROC: 0HBRXZZ Excision of Toe Nail, External Approach (ICD-10-PCS; 2022-01-09)
PROC: 0HBRXZZ Excision of Toe Nail, External Approach (ICD-10-PCS; 2022-01-09)
PROC: 0HBRXZZ Excision of Toe Nail, External Approach (ICD-10-PCS; 2022-01-09)
PROC: 0HBRXZZ Excision of Toe Nail, External Approach (ICD-10-PCS; 2022-01-09)
PROC: 0HBRXZZ Excision of Toe Nail, External Approach (ICD-10-PCS; 2022-01-09)
PROC: 0HBRXZZ Excision of Toe Nail, External Approach (ICD-10-PCS; 2022-01-09)
PROC: 0HBRXZZ Excision of Toe Nail, External Approach (ICD-10-PCS; 2022-01-09)
PROC: 0HBRXZZ Excision of Toe Nail, External Approach (ICD-10-PCS; 2022-01-09)
DX: A41.9 Sepsis, unspecified organism (principal); G93.41 Metabolic encephalopathy; N17.0 Acute kidney failure with tubular necrosis; J96.22 Acute and chronic respiratory failure with hypercapnia; J96.21 Acute and chronic respiratory failure with hypoxia; J18.9 Pneumonia, unspecified organism; Z66 Do not resuscitate; I11.0 Hypertensive heart disease with heart failure; E87.5 Hyperkalemia; Z68.37 Body mass index [BMI] 37.0-37.9, adult; D75.1 Secondary polycythemia; R73.03 Prediabetes; B35.1 Tinea unguium; R65.21 Severe sepsis with septic shock; E66.01 Morbid (severe) obesity due to excess calories; R73.9 Hyperglycemia, unspecified; J44.9 Chronic obstructive pulmonary disease, unspecified; I50.32 Chronic diastolic (congestive) heart failure; Z20.822 Contact with and (suspected) exposure to COVID-19; E03.9 Hypothyroidism, unspecified; E80.6 Other disorders of bilirubin metabolism; I48.91 Unspecified atrial fibrillation; E78.5 Hyperlipidemia, unspecified; E86.0 Dehydration; E83.41 Hypermagnesemia; Z83.3 Family history of diabetes mellitus; Z79.51 Long term (current) use of inhaled steroids; Z79.82 Long term (current) use of aspirin; Z99.81 Dependence on supplemental oxygen; Z79.899 Other long term (current) drug therapy; R65.20 Severe sepsis without septic shock; F32.9 Major depressive disorder, single episode, unspecified

== ENCOUNTER 2022-01-12 19:08 | Inpatient (IN) | payer OTHER, MEDICAID ==
[~2022-01-12] VITALS: Ht 200.7 cm; Wt 150.1 kg
[2022-01-12 19:00] VITALS: BP 102/69
[2022-01-12 20:08] VITALS: BP 0/0
== END 2022-01-12 23:08 | DRG 189 ==
LOC: ICCU 19:08
PROVIDERS: ADMIT Internal Medicine; ATTEND Internal Medicine
DX: J96.01 Acute respiratory failure with hypoxia (principal); Z66 Do not resuscitate; N17.0 Acute kidney failure with tubular necrosis; G93.41 Metabolic encephalopathy; Z51.5 Encounter for palliative care